=== PATIENT | female | born 1955 | race African-American/Black ===

== ENCOUNTER 2017-06-26 07:08 | Inpatient (IN) | payer MEDICARE, BC ==
[~2017-06-26] VITALS: Ht 170.2 cm; Wt 119.3 kg
--- NOTE | ~2017-06-26 | OP ---
PATIENT NAME: BRITT SCANLON MEDICAL RECORD: [id number] :56 LOCATION:D. D.2105 ADMISSION DATE:06/26/17 SURGEON: RENE MARR MD DATE OF OPERATION: 06/26/2017 REFERRING PHYSICIAN: Dr. Sanderson and local doggy daycare activities director Dr. Good. 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 OPERATION PERFORMED: Implantation of HeRO AV graft with performance of intraoperative superior vena cavogram and balloon angioplasty of stenotic right internal jugular vein. This included implantation an Acuseal PTFE early stick graft in the right arm and thrombectomy of prior brachial artery of cephalic vein anastomosis. SURGEON: Rene Marr MD. ANESTHESIA: General endotracheal per NEWSPAPER DISTRIBUTOR SUPERVISOR. NEWSPAPER DISTRIBUTOR SUPERVISOR also placed a left common femoral central venous line, a non-tunneled central venous line using ultrasound guidance and I also removed her right internal jugular tunneled dialysis catheter. PREOPERATIVE NOTE: Ms. Britt Scanlon is a 62-year-old morbidly obese, hypertensive diabetic -[place] female from [place]. She is on dialysis and has had complications with her right upper arm fistula, which was later converted to a brachiocephalic and brachial axillary AV graft. She developed axillary and subclavian venous stenoses, which were treated with angioplasty and stents and at this time now is catheter dependent. The access in her right arm has thrombosed. 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 She is brought to the hospital today for admission and she is having elective access surgery. I plan to remove her tunneled dialysis catheter and implant a HeRO graft and used the right internal jugular as the conduit for inserting the HeRO outflow device into the central venous circulation. Under general endotracheal anesthesia, the patient was prepped and draped in sterile manner. She was given Ancef 1 gram, but also given 1 gram of vancomycin IV at the initiation of the operation. I made an incision distally just above the antecubital space and exposed the old thrombosed PTFE graft and its anastomosis to the stump of her old brachiocephalic fistula. The graft and the fistula stump were dissected from the surrounding tissues, there was a palpable pulsation in the venous cuff, so that I thought we could probably used the stump of the old graft there on the old fistula and do a thrombectomy and then sew a new graft into it. The area was treated with Ancef and gentamicin solution. I made an incision at the base of the neck on the right; actually we opened the OPERATIVE REPORT [id number] BRITT SCANLON previous incision and extended it and exposed her internal jugular catheter, clamped and divided it. I removed a segment of catheter from the subcutaneous tunnel, which included the Dacron felt cuff portion and this segment was sent to laboratory for culture. The external portion of the catheter was removed and then discarded. The wounds were irrigated again with Ancef and gentamicin solution. I removed the intravascular segment of catheter over a guidewire under fluoroscopy and then inserted an 8-Tuvaluan introducer over the wire. I was able then to pass an angled Glidewire with a glide catheter through the introducer and superior vena cava and right atrium into the inferior vena cava. I then did a wire exchange placing an Amplatz stiff wire in the inferior vena cava. I backed the introducer out to quite superficial location and did a contrast injection with digital subtraction and demonstrated a very severely recurrent stenotic right internal jugular vein. This was subsequently dilated with an 8 mm diameter high pressure Conquest balloon; after which, I passed serial dilators and lastly a dilator peel-away introducer sheath. The HeRO outflow device was then lubricated and inserted over the Amplatz wire and positioned in the right atrium. Aspiration demonstrated easy return of blood; after which, it was flushed with saline and then a contrast injection done, which confirmed its position within the right atrium. The outflow device was again flushed with heparin and saline and clamped and an incision was made over the deltopectoral groove and the outflow stent catheter was pulled from the primary cervical wound down into the deltopectoral groove wound where it was shortened and prepared for anastomosis. I then chose a 6-mm diameter Acuseal [place] PTFE graft and then anastomosed it end-to-side to the old graft just proximal to the old graft to vein anastomosis. I first used a 4-Tuvaluan Radha embolectomy catheter to remove thrombus from the arterial anastomosis. Before and after these maneuvers, I performed a Doppler examination and demonstrated pulsatile flow in the radial artery at the wrist, which was unchanging during the procedure. When the Acuseal graft anastomosis was completed with a 6-0 Prolene, it was sealed with BioGlue and then after an adequate time for the glue to cure, that suture line was demonstrated to be hemostatic and watertight. The graft was flushed with heparinized saline and clamped. A tunneler was used from the deltopectoral groove down to the distal arm incision and the graft pulled through that subcutaneous tunnel, placing it as close to the skin as possible to ease its access. That graft was then shortened and the HeRO attachment device fixed on its end and it was then coupled with the HeRO outflow stent catheter and clamps were removed allowing flow in the new circuit. Doppler examination revealed excellent continuous pulsatile flow. The wounds were closed without the use of a drain with interrupted inverted 3-0 Vicryl and running intracuticular 4-0 Monocryl. A couple of 4-0 Prolene sutures were used in addition to close the skin at the cervical incision. All the wounds were dressed with Dermabond glue, Maxorb Ag, Tegaderm and Cavilon skin prep. She was awakened and extubated and taken to the recovery room in stable condition. Blood loss about 100 cc was not replaced. All sponges, instruments and needles were accounted for. No surgical specimen was submitted for histopathology and all sponges, instruments, and needles were accounted for. The patient will be admitted to the hospital and will have her first dialysis tomorrow via the new Acuseal graft. TRANSINT:[id number] Voice Confirmation ID: [id number] DOCUMENT ID: [id number] OPERATIVE REPORT [id number] BRITT SCANLON JAMES MD CC: SAMMIE GOOD MD and GEOVANNY SANDERSON III MD [id number] DICTATION DATE: 06/26/17 165 [address] OPERATOR: 06/27/17 0016 ADM IN [facility] [address] [place] [address]
[~2017-06-26 07:08] MED LIST: BAYER CHEWABLE81 MG PO; ELIQUIS5 MG PO; EMLA CREAM 30 G30 G1 TOPICAL; ENULOSE10 G/15 ML PO; GLIPIZIDE10 MG PO; GLUCOTROL 5 MG T5 MG PO; HYDRALAZINE HCL25 MG PO; KLONOPIN1 MG PO; LASIX80 MG PO; LOSARTAN POTASS25 MG PO; METOPROLOL TAR100 M1 PO; NORVASC5 MG PO; PHOSLO667 MG PO; PRAVACHOL40 MG PO; RENA-VITE TABL0.8 MG PO; SENSIPAR60 MG PO; SODIUM BICARBO650 MG PO; ULTRAM50 MG PO; ZYLOPRIM100 MG PO
[2017-06-26 09:15] LABS: ANION GAP 15.7 mmol/L (8-16); CALCIUM 8.5 mg/dL (8.5-10.1); CARBON DIOXIDE 25.1 mmol/L (21.0-32.0); CREATININE - SERUM 6.4 mg/dL (0.6-1.3); POTASSIUM - SERUM 4.8 mmol/L (3.5-5.1)
[2017-06-26 09:17] LABS: APTT 26.8 SECONDS (22.8-39.4); INR 0.99 (0.85-1.17)
[2017-06-26] MEDS ORDERED: RENA-VITE TABL0.8 MG PO (10:35)
[2017-06-26] MEDS ORDERED: RENVELA800 MG PO (10:36)
[2017-06-26] MEDS ORDERED: PHOSLO667 MG PO (10:37)
[2017-06-26 10:48] VITALS: BP 114/81; Ht 170.2 cm; Wt 119.3 kg
[2017-06-26] MEDS ORDERED: MINOCIN50 MG PO (16:27)
--- NOTE | 2017-06-26 17:01 | NUR ---
FSBS 119
--- NOTE | 2017-06-26 17:25 | NUR ---
PT ARRIVED FROM POST OP RECOVERY BY TINA ROBERSON RN. VSS AND BEING MONITERED PER POST OP POLICY. PT A&O TRANSFERRED TO THE BED HERSELF FROM THE STRETCHER. PT IS A R.ARM RESERVE AND HAS NEWLY PLACED HEROGRAFT IN PLACE. DRSG CDI, NO S/S OF BLEEDING OR HEMATOMA NOTED. PT HAS INCISION WITH DRSG TO HER R.UPPER CHEST ALSO FROM REMOVED CATHETER. PT HAS A L.GROIN CVL TRIPLE LUMEN WITH ALL 3 LUMENS PATENT. DRSG CDI AND BIOPATCH IN PLACE WITH SWAB CAPS IN USE. PT WEARING SCDS. PT DENIES ANY CURRENT PAIN OR NEEDS, WILL CHECK ORDERS AND CPOC.
[2017-06-26 17:31] VITALS: BP 143/61
--- NOTE | 2017-06-26 17:44 | NUR ---
DURING ADMISSION ASSESSMENT COMPUTER SCREEN TURNED BLACK AND SHUT DOWN. REBOOTED SYSTEM AND NOW THAT TASK IS LOCKED. WILL TRY AGAIN LATER AND CALL VENDING TECHNICIAN.
[2017-06-26 20:00] VITALS: BP 110/62
[2017-06-27] VITALS: BP 81/43
--- NOTE | 2017-06-27 01:46 | NUR ---
RESTING WITH EYES CLOSED. HAS CPAP ON. NO S/S OF DISCOMFORT. CL IN REACH.
[2017-06-27 04:00] VITALS: BP 145/76
--- NOTE | 2017-06-27 07:45 | NUR ---
Pt alert and oriented with no c/o pain currently. HOB elevated to approx 30 degrees. Pt will have dialysis today, with no current time available. Nursing to inform pt when dialysis calls. Pt has several areas of discoloration to chest, clean and dry dressing to rt IP. Call light in reach, pt able to make needs known, uses bedpan for elimination.
[2017-06-27 07:51] VITALS: BP 113/52
--- NOTE | 2017-06-27 08:52 | NUR ---
To dialysis by bed ar [id number].
--- NOTE | 2017-06-27 11:45 | NUR ---
PT IS CURRENTLY IN DIALYSIS
--- NOTE | 2017-06-27 12:43 | NUR ---
Returned from dialysis via bed with no c/o pain. Lunch provided.
--- NOTE | 2017-06-27 13:20 | NUR ---
Lt groin CVL removed by RN (after removal of 2 sutures), without complication, cath tip intact. Pt tolerated procedure with minimal c/o discomfort.
--- NOTE | 2017-06-27 13:26 | NUR ---
Pt left via wheelchair with no bleeding, no distress, no c/o pain. Pt left with sister, personal belongings. discharge instructions.
--- NOTE | 2017-06-27 13:26 | NUR ---
TRIPLE LUMEN CENTRAL LINE REMOVED FROM LEFT GROIN, 15CM IN LENGTH. PRESSURE HELD FOR 10 MINUTES. NO BLEEDING FROM SITE. PRESSURE DRESSING APPLIED TO LEFT GROIN. INSTRUCTIONS PROVIDED TO PATIENT, NO TUBE BATHS UNTIL AREA IS HEALED. PATIENT VERBALIZED UNDERSTANDING OF INSTRUCTIONS PROVIDED. NO DISTRESS.
== END 2017-06-27 13:27 | disposition home or self-care (01) | DRG 252 ==
LOC: D.OPS 07:08 → D.M2 17:18 → D.OPS 17:19 → D.M2 06-27 13:27
PROVIDERS: Surgery; ADMIT Internal Medicine Nephrology
PROC: 037Y3ZZ Dilation of Upper Artery, Percutaneous Approach (ICD-10-PCS; 2017-06-26)
PROC: 03C73ZZ Extirpation of Matter from Right Brachial Artery, Percutaneous Approach (ICD-10-PCS; 2017-06-26)
PROC: 05CD3ZZ Extirpation of Matter from Right Cephalic Vein, Percutaneous Approach (ICD-10-PCS; 2017-06-26)
PROC: 03170KF Bypass Right Brachial Artery to Lower Arm Vein with Nonautologous Tissue Substitute, Open Approach (ICD-10-PCS; 2017-06-26)
PROC: B5181ZZ Fluoroscopy of Superior Vena Cava using Low Osmolar Contrast (ICD-10-PCS; 2017-06-26)
PROC: 03170JD Bypass Right Brachial Artery to Upper Arm Vein with Synthetic Substitute, Open Approach (ICD-10-PCS; principal; 2017-06-26 11:30)
PROC: 5A1D00Z (ICD-10-PCS; 2017-06-27)
DX: I82.C11 Acute embolism and thrombosis of right internal jugular vein (principal); N18.6 End stage renal disease; I12.0 Hypertensive chronic kidney disease with stage 5 chronic kidney disease or end stage renal disease; I82.B11 Acute embolism and thrombosis of right subclavian vein; E11.22 Type 2 diabetes mellitus with diabetic chronic kidney disease; Z99.2 Dependence on renal dialysis; E66.01 Morbid (severe) obesity due to excess calories

== ENCOUNTER 2017-10-02 15:45 | Day surgery (SDC) | payer MEDICARE, BC ==
[~2017-10-02 15:45] MED LIST changes: +MINOCIN50 MG PO; +RENVELA800 MG PO
[2017-10-03 11:22] VITALS: BMI 41.6
== END 2017-10-03 21:19 | disposition home or self-care (01) ==
LOC: D.OPS 15:45
DX: T82.868A Thrombosis due to vascular prosthetic devices, implants and grafts, initial encounter (principal); E11.22 Type 2 diabetes mellitus with diabetic chronic kidney disease; I12.0 Hypertensive chronic kidney disease with stage 5 chronic kidney disease or end stage renal disease; N18.6 End stage renal disease; Z99.2 Dependence on renal dialysis; G47.30 Sleep apnea, unspecified; E66.01 Morbid (severe) obesity due to excess calories; Z68.41 Body mass index [BMI] 40.0-44.9, adult; Z79.84 Long term (current) use of oral hypoglycemic drugs; Z79.01 Long term (current) use of anticoagulants; Z88.5 Allergy status to narcotic agent; Z79.899 Other long term (current) drug therapy; Z01.812 Encounter for preprocedural laboratory examination

== ENCOUNTER 2017-11-11 18:23 | Inpatient (IN) | payer MEDICARE, BC ==
[~2017-11-11] VITALS: Ht 162.6 cm; Wt 128.0 kg
--- NOTE | ~2017-11-11 | OP ---
PATIENT NAME: NELSON SCANLON MEDICAL RECORD: [id number] :56 LOCATION:D. D.2128 ADMISSION DATE:11/11/17 SURGEON: RENE MARR MD DATE OF OPERATION: 11/13/2017 PREOPERATIVE DIAGNOSES: End-stage renal disease, morbid obesity, diabetes, hypertension, and thrombosed right upper extremity HeRO AV graft. POSTOPERATIVE DIAGNOSES: End-stage renal disease, morbid obesity, diabetes, hypertension, and thrombosed right upper extremity HeRO AV graft. OPERATION PERFORMED: Open thrombectomy and balloon angioplasty of AV graft in the right arm plus complete fistulogram with imaging from the brachial arterial anastomosis to the right atrium. SURGEON: Rene Marr MD ANESTHESIA: General by FEED PREPARATION OPERATOR with LMA. REFERRING PHYSICIAN: Dr. Key of [place] and Dr. Handley. PREOPERATIVE NOTE: Ms. Scanlon is a 62-year-old -[place] female from [facility]. She has end-stage renal disease and is on chronic hemodialysis. She has had several dialysis access failures and had dialyzed well for a while with a right arm brachiocephalic fistula; however, right subclavian vein occlusion and venous hypertension led to transformation or conversion to a HeRO graft on that side, that has been revised once with a different Acuseal PTFE graft placed laterally around the initial one and she has been on anticoagulants, Plavix, aspirin, and Eliquis. Despite the anticoagulation, she has thrombosed her graft again 2 days ago in the [facility] access [facility] as an outpatient. I performed a percutaneous thrombectomy and angioplasty of stenoses with the body of the graft, but I was unable to adequately resolve the large volume of organized thrombus in the graft, particularly in the JA segment and so she was admitted to the hospital and put on a continuous heparin drip and an attempt to dialyze her with her fistula yesterday was unsuccessful. Her heparin drip was discontinued just a few hours ago and she is brought to the operating room now with plans for an open thrombectomy, fistulogram, and indicated procedures, possibly including insertion of a tunneled catheter. DESCRIPTION OF PROCEDURE: Under general anesthesia in supine position, the patient was prepped and draped in sterile manner. I made an S-shaped transversely oriented incision over the fistula and arterial anastomosis and dissected the cephalic vein portion of the fistula and exposed and cleared a long enough segment to work with and it was encircled with Silastic loops. The patient was given 5000 units of heparin systemically. The fistula was clamped at the arterial anastomosis and then the old cephalic vein segment was incised longitudinally and organized thrombus was removed from the lumen. I then used an embolectomy catheter to remove thrombus from the body of the graft and from the HeRO outflow device. Good return or backbleeding was obtained, the graft was clamped distally. I removed the clamp from the arterial anastomosis and used the Radha embolectomy catheter to remove thrombus from the arterial anastomosis and restore brisk arterial inflow. With the fistula clamped on the arterial side and on the runoff side, the arteriotomy was closed with a running 5-0 Prolene and when that was complete and the clamps removed, excellent flow was noted immediately within the graft and there was a palpable thrill and good OPERATIVE REPORT [id number] SCANLON,GLENADINE L augmentation, etc. I then inserted a 6-Gambian introducer and performed a fistulogram. I demonstrated some irregularities in the body of the graft, which resulted in a 70% to 80% stenosis. These areas were dilated with a 7-mm diameter angioplasty balloon and I again pulled the Radha catheter back from the right atrium through the length of the HeRO outflow device and the body of the Acuseal PTFE graft. Contrast injection revealed full resolution of the stenosis and no evidence of any other obstruction. I then occluded the body of the graft and opened the clamp on the arterial anastomosis and performed additional reflux angiography to demonstrate that there was no thrombus or obstruction within the juxta anastomotic segment or in the brachial artery above or below the anastomosis. There was good flow distally into the forearm and hand. The clamps were removed. Introducer sheath was removed and that site was sutured with a [id number] 5-0 Prolene and the wound was then irrigated with saline and then infiltrated and irrigated with 0.25% Marcaine. I repeated a duplex Doppler color examination and demonstrated turbulent flow within the body of the graft as hoped. The wound was then closed with interrupted inverted 3-0 Vicryl and then running intracuticular 4-0 Monocryl and Dermabond glue and it was dressed with Maxorb Ag, Tegaderm, and Cavilon skin prep. She was awakened and returned to the recovery room in stable condition. PLAN: I am going to put the patient back on Eliquis and Plavix as of now and she can have dialysis this evening or perhaps in the morning and then hopefully be able to go home if she has transportation tomorrow. I can see her back in my office in about 2 weeks. TRANSINT:[id number] Voice Confirmation ID: [id number] DOCUMENT ID: [id number] RENE MARR MD at 1019 CC: ISELA HANDLEY MD [id number] DICTATION DATE: 11/13/17 1533 CARCASS WASHER: 11/13/17 1806 DIS IN 11/14/17 [id number] [place] [address]
[2017-11-11 19:00] VITALS: BP 175/85
[2017-11-11] MEDS ORDERED: KLONOPIN1 MG PO (20:22)
[2017-11-11] MEDS ORDERED: FERRIC CITRATE210 MG PO (20:22)
[2017-11-11] MEDS ORDERED: COZAAR50 MG PO (20:23)
[2017-11-11] MEDS ORDERED: CYCLOBENZAPRINE10 MG PO (20:24)
[2017-11-11] MEDS ORDERED: MELATONIN 3 MG1 TAB PO (20:24)
[2017-11-11] MEDS ORDERED: LOPRESSOR25 MG PO (20:25)
[2017-11-11] MEDS ORDERED: SENSIPAR30 MG PO (20:26)
[2017-11-11 20:36] LABS: APTT 38.5 SECONDS (22.8-39.4); INR 1.13 (0.85-1.17); PROTIME 14.1 SECONDS (11.6-15.0)
[2017-11-11 20:39] LABS: ANION GAP 16.3 mmol/L (8-16); CALCIUM 8.6 mg/dL (8.5-10.1); CARBON DIOXIDE 22.7 mmol/L (21.0-32.0)
[2017-11-11 20:51] LABS: BASOPHILS 0.2 % (0-2); EOSINOPHILS 3.2 % (0-7); HEMATOCRIT 32.4 % (36.0-48.0); HEMOGLOBIN 10.4 g/dL (12-16); LYMPHOCYTES 18.2 % (15-50); MCH 30.5 pg (26.0-34.0); MCHC 32.1 g/dL (31.0-37.0); MEAN PLATELET VOLUME 10.9 fL (7.4-10.4); MONOCYTES 6.6 % (2-11); NEUTROPHILS 71.8 % (40-80); PLATELET COUNT 174 10x3/uL (130-400); RBC 3.41 10x6/uL (4.00-5.40); RDW 14.7 % (11.5-14.5); WBC 5.3 10x3/uL (4.8-10.8)
[2017-11-11 23:44] VITALS: BP 175/85; BMI 29.5
[2017-11-12 04:00] VITALS: BP 141/57
[2017-11-12 08:47] VITALS: BP 138/74
[2017-11-12 12:23] VITALS: BMI 48.4
[2017-11-12 12:33] VITALS: BP 144/72
[2017-11-12 14:06] VITALS: Ht 162.6 cm; Wt 128.0 kg
[2017-11-12 16:28] VITALS: BP 137/77
[2017-11-12 21:44] VITALS: BP 147/68
[2017-11-13 01:15] VITALS: BP 133/56
[2017-11-13 05:58] VITALS: BP 171/66
[2017-11-13 06:13] LABS: BASOPHILS 0.4 % (0-2); EOSINOPHILS 4.5 % (0-7); HEMATOCRIT 33.9 % (36.0-48.0); HEMOGLOBIN 10.5 g/dL (12-16); IMMATURE GRANULOCYTES 0.2 % (0-5); MCH 29.9 pg (26.0-34.0); MCV 96.6 fL (80.0-100.0); MEAN PLATELET VOLUME 11.3 fL (7.4-10.4); MONOCYTES 6.4 % (2-11); NEUTROPHILS 56.5 % (40-80); PLATELET COUNT 184 10x3/uL (130-400); RBC 3.51 10x6/uL (4.00-5.40); WBC 5.2 10x3/uL (4.8-10.8)
[2017-11-13 06:26] LABS: INR 1.06 (0.85-1.17); PROTIME 13.4 SECONDS (11.6-15.0)
[2017-11-13 06:37] LABS: ANION GAP 21.9 mmol/L (8-16); CALCIUM 9.1 mg/dL (8.5-10.1); CARBON DIOXIDE 20.5 mmol/L (21.0-32.0); CREATININE - SERUM 10.3 mg/dL (0.6-1.3); PHOSPHOROUS 6.5 mg/dL (2.5-4.9); POTASSIUM - SERUM 4.4 mmol/L (3.5-5.1)
[2017-11-13 08:06] VITALS: BP 185/94
[2017-11-13 11:18] VITALS: BP 154/67
[2017-11-13 15:43] VITALS: BP 142/75
[2017-11-13 19:00] VITALS: BP 127/45
[2017-11-14 04:00] VITALS: BP 111/53
[2017-11-14 07:12] LABS: HEMATOCRIT 30.5 % (36.0-48.0); HEMOGLOBIN 9.9 g/dL (12-16); LYMPHOCYTES 16.9 % (15-50); MCH 30.4 pg (26.0-34.0); MCHC 32.5 g/dL (31.0-37.0); MEAN PLATELET VOLUME 9.9 fL (7.4-10.4); RBC 3.26 10x6/uL (4.00-5.40); RDW 14.3 % (11.5-14.5); WBC 6.5 10x3/uL (4.8-10.8)
[2017-11-14 07:26] LABS: MCV 93.6 fL (80.0-100.0); PLATELET COUNT 142 10x3/uL (130-400)
[2017-11-14 07:29] LABS: ANION GAP 17.9 mmol/L (8-16); CALCIUM 8.5 mg/dL (8.5-10.1); CARBON DIOXIDE 24.2 mmol/L (21.0-32.0); PHOSPHOROUS 5.8 mg/dL (2.5-4.9); POTASSIUM - SERUM 4.1 mmol/L (3.5-5.1)
[2017-11-14 08:23] VITALS: BP 117/66
[2017-11-14] MEDS ORDERED: PLAVIX75 MG PO (10:49)
== END 2017-11-14 14:49 | disposition home or self-care (01) | DRG 252 ==
LOC: D.M2 18:23 → OBSVTIME 18:23 → D.M2 18:24
PROVIDERS: Internal Medicine; Internal Medicine Nephrology; Surgery
PROC: 5A1D70Z Performance of Urinary Filtration, Intermittent, Less than 6 Hours Per Day (ICD-10-PCS; 2017-11-12)
PROC: 03C70ZZ Extirpation of Matter from Right Brachial Artery, Open Approach (ICD-10-PCS; principal; 2017-11-13 12:00)
PROC: 037Y0ZZ Dilation of Upper Artery, Open Approach (ICD-10-PCS; 2017-11-13 12:00)
PROC: B51W1ZZ Fluoroscopy of Dialysis Shunt/Fistula using Low Osmolar Contrast (ICD-10-PCS; 2017-11-13 12:00)
DX: T82.858A Stenosis of other vascular prosthetic devices, implants and grafts, initial encounter (principal); N18.6 End stage renal disease; I12.0 Hypertensive chronic kidney disease with stage 5 chronic kidney disease or end stage renal disease; Z68.42 Body mass index [BMI] 45.0-49.9, adult; N25.81 Secondary hyperparathyroidism of renal origin; Y83.8 Other surgical procedures as the cause of abnormal reaction of the patient, or of later complication, without mention of misadventure at the time of the procedure; E11.22 Type 2 diabetes mellitus with diabetic chronic kidney disease; Z99.2 Dependence on renal dialysis; E66.01 Morbid (severe) obesity due to excess calories; D63.1 Anemia in chronic kidney disease; K21.9 Gastro-esophageal reflux disease without esophagitis; G47.00 Insomnia, unspecified

== ENCOUNTER 2018-01-05 08:15 | Day surgery (SDC) | payer MEDICARE, BC ==
[~2018-01-05] VITALS: Ht 152.4 cm; Wt 120.2 kg
--- NOTE | ~2018-01-05 | OP ---
PATIENT NAME: NELSON GARDNER MEDICAL RECORD: [id number] :56 LOCATION:JASWINDER ADMISSION DATE: SURGEON: RENE MARR MD DATE OF OPERATION: 01/05/2018 PREOPERATIVE DIAGNOSES: End-stage renal disease and dependence on hemodialysis, thrombosed right upper extremity HeRO AV graft, also diabetes, hypertension, and morbid obesity. REFERRING PHYSICIANS: 1. Duarte Key MD, [place] 2. Aki Burgos MD, [place] SURGEON: Rene Marr MD ANESTHESIA: General endotracheal per AIR TUBE RELEASER and Dr. Staples. PREOP NOTE: Ms. Gardner is a 62-year-old morbidly obese -[place]aced[place] female from [facility], who is on chronic hemodialysis in [place]. She has been dialyzing most recently with a right upper extremity HeRO AV graft. She was converted to from a brachiocephalic fistula on the right due to an occluded right subclavian vein. She has had problems with the HeRO graft and had had problems with the graft not being inserted superficially enough to be easily felt and accessed. The most recent version had worked reasonably well, but it has thrombosed at this time. She actually had an open thrombectomy fairly recently. At that time, she was found to have organized thrombus in a remaining portion of her original brachiocephalic fistula, to which her PTFE graft had been anastomosed just above the antecubital space. It is thought that that remaining segment of old fistula needs to be totally resected. She is brought to the operating room at this time to do an intraoperative fistulogram and open revision and thrombectomy and indicated procedures. Note, she is dialyzing at this time with a left femoral tunneled dialysis catheter, which I placed at [facility], which is far from ideal access for this morbidly obese lady. We hope to able to get this out soon. Under general endotracheal anesthesia in supine position, the patient's right arm, shoulder, and neck were prepped and draped in a sterile manner. I made an incision in a S-shaped curve over the medial aspect of the antecubital space and exposed the graft and the remaining segment of the brachiocephalic fistula and the arterial anastomosis at the brachial artery. I transected the thrombosed graft and used a Radha catheter to remove thrombus from the distal portion of the PTFE. I identified a spot about at about mid humeral level, where it was totally occluded and I could not pass a guidewire or Radha balloon catheter. So, I made another incision directly over the far laterally placed PTFE graft and found a segment which appeared to be worn out from repeated punctures with several weeks after mobilization. I was able to pass this with a Radha embolectomy catheter, manipulating the involved segment, and was able to remove thrombus from the body of the HeRO outflow device and the remaining proximal portion of the PTFE. She was heparinized with 5000 units of heparin at that point. I then realized I would need to essentially replace the PTFE graft and resect the remaining cephalic vein at the old fistula. I mobilized the old anastomosis and used a partially occluding clamp to occlude flow to and from the brachial artery. I then transected the conduit just above the old anastomosis and performed an anastomosis end-to-end to a 7-mm diameter OPERATIVE REPORT [id number] KENDRABEATRICEROSALIO Tompkins Propaten PTFE graft. This anastomosis was done with running 6-0 Prolene and the suture line treated with BioGlue. The suture line was found to be hemostatic. The graft and brachial artery were flushed with heparinized saline and graft clamped. I then explored the old graft a bit more and found a segment just above the one which had been occluded and found the segment to have very poor tissue ingrowth and had a slightly slick surface consistent with a biofilm formation. I took several swabs for culture for aerobic and anaerobic organisms and ended up resecting most of the graft and the segments were sent for culture and sensitivity. There was a segment of graft remaining in the upper or proximal portion of the tunnel, which was well fixed to the surrounding tissue and could not be removed without making a much larger wound, so I have left it alone. I made another incision over the deltopectoral groove and excised the patient's old hypertrophic scar. I first exposed wall covered stent graft and resected it as this was within the cephalic arch and had been thrombosed for a long time. I then, just above that, exposed the HeRO outflow device and the connection to the PTFE graft. I clamped the HeRO and resected the connection and the most proximal portion of PTFE. Segments of this graft were sent for culture. The 7-mm PTFE graft was then placed in a fairly straight tunnel up the anterior medial aspect of the arm from the antecubital space to the deltopectoral groove. I attached it to a HeRO replacement connector and ended up wasting this connectors. I found it could not be made to work with the 7-mm diameter graft. I therefore took a 6-mm, 10-cm long Propaten PTFE graft and shortened the 7-mm graft and then performed an end-to-end anastomosis with running 6-0 Prolene and sealed that additionally with BioGlue. The anti-kink spring device was placed over the graft and the graft appropriately shortened and a new connector placed, which did of course fit perfectly to the 6-mm graft. I shortened the outflow device and then hooked it up with the connector and released the occluding clamps and excellent flow was immediately established through the newly revised HeRO. There was good pulsatile Doppler flow at the radial artery before, during, and after the procedure. I did not perform a specific brachial artery arteriogram, but I did perform a completion fistulogram with a 4-Spanish catheter placed with micropuncture technique and the PTFE. I demonstrated, I think, most importantly to my satisfaction that there was no evidence of leak at or around the HeRO connector and that there was rapid flow through the device without any significant stenosis. The puncture site there was closed with a 6-0 Prolene [id number] and additional BioGlue. The wounds were all irrigated with Ancef/gentamicin solution and hemostasis obtained with electrocautery. The patient's heparin was reversed with 30 mg of protamine. The wounds were closed without the use of drains with interrupted inverted 3-0 Vicryl. The skin was closed variously with oliver and simple and alternating vertical mattress sutures of 3-0 Vicryl. Sterile dressings of Maxorb Ag, Tegaderm, and Cavilon skin prep were applied. The patient was awakened, extubated, and taken to the recovery room in satisfactory condition. Blood loss during the procedure was less than 200 cc, probably closer to 100, none was replaced. All sponges, instruments, and needles were accounted for. No drain was used and no surgical specimen was submitted for histopathology, although sections of the graft as well as swabs were sent for culture and sensitivity. I will plan for the patient to remain in the hospital in observation this evening. She will possibly need to have dialysis here tomorrow. If not, she will be able to go back to [place] and have dialysis there. She will need to continue to have dialysis with her femoral catheter for 2 more weeks before we start to access her new graft and then hopefully we can get the catheter out just as soon as possible after that. She was given a gram of vancomycin this OPERATIVE REPORT [id number] NELSON GARDNER L evening in the operating room at the initiation of the procedure and I would like to see her continued on vancomycin at dialysis pending the results of today's cultures. An appointment is scheduled for her to return to see me in my office next week, I believe, on , at which time I will probably be able to remove many of her skin sutures or oliver. She will be continued on all of her same medications including anticoagulants beginning tomorrow. TRANSINT:[id number] Voice Confirmation ID: [id number] DOCUMENT ID: [id number] RENE MARR MD at 2012 CC: ISELA SOLIS MD [id number] DICTATION DATE: 01/05/181816 BLANKBOOK FORWARDER: 01/05/181941 [facility] 01/06/18 [facility] [address] [place] [address]
[~2018-01-05 08:15] MED LIST changes: +COZAAR50 MG PO; +CYCLOBENZAPRINE10 MG PO; +FERRIC CITRATE210 MG PO; +LOPRESSOR25 MG PO; +MELATONIN 3 MG1 TAB PO; +PLAVIX75 MG PO; +SENSIPAR30 MG PO
[2018-01-05 09:12] LABS: BASOPHILS 0.3 % (0-2); EOSINOPHILS 2.3 % (0-7); HEMATOCRIT 32.9 % (36.0-48.0); HEMOGLOBIN 10.1 g/dL (12-16); IMMATURE GRANULOCYTES 0.1 % (0-5); LYMPHOCYTES 21.9 % (15-50); MCH 30.1 pg (26.0-34.0); MCHC 30.7 g/dL (31.0-37.0); MCV 97.9 fL (80.0-100.0); MEAN PLATELET VOLUME 10.4 fL (7.4-10.4); MONOCYTES 4.1 % (2-11); NEUTROPHILS 71.3 % (40-80); PLATELET COUNT 215 10x3/uL (130-400); RBC 3.36 10x6/uL (4.00-5.40); RDW 14.8 % (11.5-14.5); WBC 7.6 10x3/uL (4.8-10.8)
[2018-01-05 09:21] LABS: ANION GAP 16.4 mmol/L (8-16); CALCIUM 9.3 mg/dL (8.5-10.1); CREATININE - SERUM 6.7 mg/dL (0.6-1.3); POTASSIUM - SERUM 4.4 mmol/L (3.5-5.1)
[2018-01-05 09:23] LABS: APTT 28.5 SECONDS (22.8-39.4); INR 1.07 (0.85-1.17); PROTIME 13.5 SECONDS (11.6-15.0)
[2018-01-05 10:05] VITALS: BP 141/71; BMI 45.6
[2018-01-06] VITALS: BP 128/63
[2018-01-06 01:55] VITALS: Ht 152.4 cm; Wt 120.2 kg
[2018-01-06 10:52] VITALS: BP 135/63
== END 2018-01-06 12:52 | disposition home or self-care (01) ==
LOC: OBSVTIME → D.OPS 08:15 → D.M2 08:15 → D.OPS 12:30 → D.M2 18:02 → OBSVTIME 18:02 → D.OPS 18:02 → D.M2 18:02 → D.OPS 01-06 12:32 → D.M2 01-06 12:52 → D.OPS 01-06 12:52
PROVIDERS: Surgery
DX: T82.868A Thrombosis due to vascular prosthetic devices, implants and grafts, initial encounter (principal); Y83.9 Surgical procedure, unspecified as the cause of abnormal reaction of the patient, or of later complication, without mention of misadventure at the time of the procedure; E11.22 Type 2 diabetes mellitus with diabetic chronic kidney disease; I12.0 Hypertensive chronic kidney disease with stage 5 chronic kidney disease or end stage renal disease; N18.6 End stage renal disease; Z99.2 Dependence on renal dialysis; E66.01 Morbid (severe) obesity due to excess calories

== ENCOUNTER 2018-01-28 17:45 | Inpatient (IN) | payer MEDICARE, BC ==
[~2018-01-28] VITALS: Ht 162.6 cm; Wt 131.4 kg
--- NOTE | ~2018-01-28 | OP ---
PATIENT NAME: NELSON SCANLON MEDICAL RECORD: [id number] :57 LOCATION:D. D.2133 ADMISSION DATE:01/28/18 SURGEON: RENE MARR MD DATE OF OPERATION: 01/29/2018 REFERRING PHYSICIAN: Aki Good MD ANESTHESIA: General per JESSIE and Dr. Cole. SURGEON: Rene Marr MD POSTOPERATIVE DIAGNOSES: End-stage renal disease and dependence on hemodialysis and thrombosis of right upper extremity, HeRO AV graft, and morbid obesity, diabetes, hypertension, right subclavian vein occlusion, left internal jugular vein occlusion, and right internal jugular vein occlusion. OPERATION PERFORMED: Removal of tunneled dialysis catheter, which was the HeRO outflow device from the right neck and removal of segment of infected PTFE vascular graft from the right shoulder and upper arm. Then, also ultrasound-guided access of the left internal jugular vein with venography and then exchange of femoral tunneled dialysis catheter in the left common femoral vein under fluoroscopy. SURGEON: Rene Marr MD ANESTHESIA: General per BUSINESS INITIATIVES MANAGER and Dr. Cole. PREOPERATIVE NOTE: Ms. Scanlon is an unfortunate morbidly obese -[place] female with end-stage renal disease and at this time, poor access alternatives, she has had a right upper extremity HeRO graft, which has thrombosed and she has been dialyzing with a left femoral tunneled catheter. She is brought to the operating room at this time to remove and try to place a tunneled catheter via the right internal jugular vein, so we can get the femoral catheter out at least. She may have a new graft implanted, there are number of possibilities. Under anesthesia, the patient was placed in supine position, prepped and draped in a sterile manner. I made an incision over the HeRO outflow device in the right cervical area and found that the stent had worked its way all the way out, so that the tip of the outflow device was actually in the subcutaneous tissues and there was no patent channel communicating with the internal jugular or the central veins at that point. I did extend the incision laterally and found that the PTFE portion of the graft out beyond the deltopectoral groove was surrounded by fluid without fixation in the tunnel and it was very suspicious for infection. I excised about 6 inches of the PTFE portion, the portion that was not seated and sent this for culture and removed the entire intravenous stent section and discarded it. That wound was irrigated with Ancef/gentamicin solution and closed with interrupted Vicryl sutures. I then used ultrasound to locate the left internal jugular vein, which was small and sclerotic appearing, but I was able to access it with micropuncture technique. My guidewire would not advance into the chest. Contrast injection demonstrated occlusion of the internal jugular vein at the level of the clavicular head. I then went to the femoral area and that area was totally reprepped and draped. The existing catheter was removed over a guidewire under fluoroscopy and replaced with a new one. Both lumens of the new HemoSplit which is a 40 cm OPERATIVE REPORT [id number] NELSON SCANLON HemoSplit functioned well, blood return was easy and the lumens flushed well. They were flushed with heparin lock solution, clamped and capped. The catheter was sutured in place. Sterile dressings applied. She was then awakened and in stable condition taken to the recovery room. Blood loss during the operation was insignificant and unreplaced and all sponges, instruments, and needles were accounted for and no drain was used. I did send the specimen for culture. PLAN: The patient will for now have to make do with her left femoral line. I will plan to try to get her back to the hospital within the next few weeks to implant a new AV graft in the left arm. TRANSINT:[id number] Voice Confirmation ID: [id number] DOCUMENT ID: [id number] RENE MARR MD at 1241 CC: AKI GOOD [id number] DICTATION DATE: 02/19/18 1348 JUKEBOX ROUTEMAN: 02/19/182110 DIS IN 01/30/18 [facility] [address] [id number]
[2018-01-28 18:40] VITALS: BP 196/17; BMI 45.6
[2018-01-28 19:50] LABS: BASOPHILS 0.3 % (0-2); EOSINOPHILS 2.5 % (0-7); HEMATOCRIT 27.3 % (36.0-48.0); HEMOGLOBIN 8.5 g/dL (12-16); IMMATURE GRANULOCYTES 0.2 % (0-5); LYMPHOCYTES 21.4 % (15-50); MCHC 31.1 g/dL (31.0-37.0); MCV 99.6 fL (80.0-100.0); MEAN PLATELET VOLUME 10.5 fL (7.4-10.4); MONOCYTES 4.9 % (2-11); NEUTROPHILS 70.7 % (40-80); PLATELET COUNT 240 10x3/uL (130-400); RBC 2.74 10x6/uL (4.00-5.40); RDW 14.8 % (11.5-14.5); WBC 5.9 10x3/uL (4.8-10.8)
[2018-01-28 20:02] LABS: INR 1.09 (0.85-1.17); PROTIME 13.7 SECONDS (11.6-15.0)
[2018-01-28 20:03] LABS: APTT 28.4 SECONDS (22.8-39.4)
[2018-01-28 20:07] LABS: ALBUMIN 3.3 g/dL (3.4-5.0); ANION GAP 17.7 mmol/L (8-16); BILIRUBIN - TOTAL 0.31 mg/dL (0.2-1.3); CALCIUM 8.8 mg/dL (8.5-10.1); CARBON DIOXIDE 23.9 mmol/L (21.0-32.0); CREATININE - SERUM 9.3 mg/dL (0.6-1.3); POTASSIUM - SERUM 4.6 mmol/L (3.5-5.1); PROTEIN - SERUM 6.7 g/dL (6.4-8.2)
[2018-01-28 20:37] VITALS: BP 127/64
[2018-01-29 00:46] VITALS: BP 124/52
[2018-01-29 05:50] VITALS: BP 105/38
[2018-01-29 06:31] LABS: BASOPHILS 0.4 % (0-2); EOSINOPHILS 3.2 % (0-7); HEMATOCRIT 25.4 % (36.0-48.0); HEMOGLOBIN 7.9 g/dL (12-16); LYMPHOCYTES 25.8 % (15-50); MCH 30.6 pg (26.0-34.0); MCHC 31.1 g/dL (31.0-37.0); MCV 98.4 fL (80.0-100.0); MEAN PLATELET VOLUME 10.4 fL (7.4-10.4); MONOCYTES 6.7 % (2-11); NEUTROPHILS 63.9 % (40-80); PLATELET COUNT 217 10x3/uL (130-400); RBC 2.58 10x6/uL (4.00-5.40); RDW 14.8 % (11.5-14.5); WBC 5.5 10x3/uL (4.8-10.8)
[2018-01-29 06:53] LABS: APTT 29.4 SECONDS (22.8-39.4); INR 1.17 (0.85-1.17); PROTIME 14.5 SECONDS (11.6-15.0)
[2018-01-29 07:16] LABS: ANION GAP 17.7 mmol/L (8-16); CALCIUM 8.8 mg/dL (8.5-10.1); CARBON DIOXIDE 21.1 mmol/L (21.0-32.0); CREATININE - SERUM 9.8 mg/dL (0.6-1.3); POTASSIUM - SERUM 4.8 mmol/L (3.5-5.1)
[2018-01-29 07:55] VITALS: BP 139/72
[2018-01-29 11:07] VITALS: Ht 162.6 cm; Wt 131.4 kg
[2018-01-29 11:37] VITALS: BP 110/65
[2018-01-29 15:35] VITALS: BP 152/75
[2018-01-29 19:00] VITALS: BP 139/82
[2018-01-30] VITALS: BP 158/72
[2018-01-30 04:00] VITALS: BP 134/56
[2018-01-30 07:47] LABS: BASOPHILS 0.2 % (0-2); EOSINOPHILS 0.9 % (0-7); HEMATOCRIT 26.2 % (36.0-48.0); HEMOGLOBIN 8.2 g/dL (12-16); LYMPHOCYTES 18.4 % (15-50); MCH 30.7 pg (26.0-34.0); MCHC 31.3 g/dL (31.0-37.0); MCV 98.1 fL (80.0-100.0); MEAN PLATELET VOLUME 10.3 fL (7.4-10.4); MONOCYTES 4.7 % (2-11); NEUTROPHILS 75.8 % (40-80); PLATELET COUNT 214 10x3/uL (130-400); RBC 2.67 10x6/uL (4.00-5.40); RDW 15.1 % (11.5-14.5); WBC 5.4 10x3/uL (4.8-10.8)
[2018-01-30 08:00] LABS: ANION GAP 18.8 mmol/L (8-16); CALCIUM 9.1 mg/dL (8.5-10.1); CARBON DIOXIDE 19.7 mmol/L (21.0-32.0); CREATININE - SERUM 10.7 mg/dL (0.6-1.3); POTASSIUM - SERUM 5.5 mmol/L (3.5-5.1)
[2018-01-30 08:52] VITALS: BP 110/53
[2018-02-02 04:14] LABS: HEPATITIS C ANTIBODY <0.1 (0.0-0.9)
== END 2018-01-30 19:47 | disposition home or self-care (01) | DRG 314 ==
LOC: D.M2 17:45 → D.OPS 01-29 09:45 → EDSTATUS 01-29 10:00 → D.OPS 01-29 11:00 → D.M2 01-30 19:47
PROVIDERS: Internal Medicine Nephrology; Surgery
PROC: 03PY33Z Removal of Infusion Device from Upper Artery, Percutaneous Approach (ICD-10-PCS; principal; 2018-01-29 12:30)
PROC: 0J2SXYZ Change Other Device in Head and Neck Subcutaneous Tissue and Fascia, External Approach (ICD-10-PCS; 2018-01-29 12:30)
PROC: 5A1D70Z Performance of Urinary Filtration, Intermittent, Less than 6 Hours Per Day (ICD-10-PCS; 2018-01-30)
DX: T82.7XXA Infection and inflammatory reaction due to other cardiac and vascular devices, implants and grafts, initial encounter (principal); N18.6 End stage renal disease; I12.0 Hypertensive chronic kidney disease with stage 5 chronic kidney disease or end stage renal disease; Z68.42 Body mass index [BMI] 45.0-49.9, adult; Y83.8 Other surgical procedures as the cause of abnormal reaction of the patient, or of later complication, without mention of misadventure at the time of the procedure; E11.22 Type 2 diabetes mellitus with diabetic chronic kidney disease; Z99.2 Dependence on renal dialysis; D63.1 Anemia in chronic kidney disease; E66.01 Morbid (severe) obesity due to excess calories

== ENCOUNTER 2018-03-05 06:02 | Day surgery (SDC) | payer MEDICARE, BC ==
[~2018-03-05] VITALS: Ht 162.6 cm; Wt 125.6 kg
--- NOTE | ~2018-03-05 | OP ---
PATIENT NAME: NELSON GARDNER MEDICAL RECORD: [id number] :57 LOCATION:DIVAN ADMISSION DATE: SURGEON: RENE MARR MD DATE OF OPERATION: 03/05/2018 REFERRING PHYSICIAN: Duarte Key MD and Aki Burgos MD of [place]. PREOPERATIVE DIAGNOSES: End-stage renal disease and dependence on hemodialysis and recent infected thrombosed HeRO graft on the right requiring removal and postop antibiotic therapy and multiple central vein stenoses and occlusions. OPERATION PERFORMED: Implantation of a right axillo-axillary loop Artegraft, dialysis access. SURGEON: Rene Marr MD ANESTHESIA: General endotracheal per PATROL SERGEANT. PREOPERATIVE NOTE: Ms. Gardner is a 63-year-old -[place]ian female from [place]. She is quite severely morbidly obese and diabetic, etc. She has end-stage renal disease and has had prior dialysis access failures and has multiple central vein stenoses. Notably, an occluded right subclavian vein and occlusions of the right and left internal jugular veins. She has been dialyzing for all too long now with a groin tunneled dialysis catheter and we hope we will get that out of her very very soon. I have recently removed an infected thrombosed HeRO graft from the right upper extremity and plan now to try to implant a new graft in her right or her left arm. DESCRIPTION OF PROCEDURE: Under general endotracheal anesthesia per PATROL SERGEANT, the patient was placed in supine position, prepped and draped in sterile manner. The left arm was examined with ultrasound and I noted the left axillary vein and artery were satisfactory caliber and there was no thrombosis or other sonographic abnormality is seen. A transverse axillary incision was made and the vessels exposed and controlled with Silastic loops. A single counterincision was made on the anterior arm just above the antecubital space. I chose the 6 mm diameter 44 cm long Artegraft and prepared it as per the locksmith helper's instructions with saline rinses and heparinized saline-soak. The graft was bevelled and the artery was opened and flushed proximally and distally with heparinized saline and an end-to-side graft to artery anastomosis done with 6-0 running Prolene and the suture line treated with BioGlue. The graft was flushed with saline and then when the loops were released, the suture line was hemostatic. The graft was then placed in a circuitous tunnel with the arterial limb anterior and I placed this tunnel as close to the surface as possible and I believe that it will be easily palpable and hopefully easily accessed. I used essentially the entire length of graft. The end was then bevelled and the vein occluded opened, flushed with heparinized saline and an end-to-side anastomosis end of graft to side of vein performed again with running 6-0 Prolene. I did not use BioGlue on the venous anastomosis. When the occluding clamps and loops are released, excellent flow was immediately established within the graft and the suture lines were all hemostatic. The wound was irrigated with Ancef and gentamicin solution. Hemostasis obtained with electrocautery. I left a 15-Cymraes round fluted drain in the axilla brought out through a stab incision on the medial aspect of the arm and attached to suction. The wounds were closed with interrupted inverted 3-0 Vicryl. The primary incision was closed with OPERATIVE REPORT [id number] NELSON GARDNER running intracuticular running 4-0 Monocryl and Dermabond glue. The counter incision was closed with interrupted Vicryl and Dermabond glue, Steri-Strips and both incisions were then dressed with Maxorb Ag, Tegaderm, and Cavilon skin prep. With a functioning fistula and good arterial flow in the arm, the patient was awakened and extubated and taken to the recovery room in stable condition. Blood loss during the procedure was about 15 cc. None was replaced. All sponges, instruments, and needles were accounted for. Probably one 15-Cymraes round Ravindra or fluted drain was utilized. No surgical specimen was submitted for histopathology. All sponges, instruments, and needles were accounted for. PLAN: The patient's new AV graft hopefully be ready for access in 2 weeks. We will have to make do using her tunneled catheter for a little while longer. I will plan to keep her in the hospital in observation this evening, mostly to be sure that her drain is cared for properly and that she has no early wound complications. Most likely her drain can be removed in the morning and she will be able to be discharged to home, although she lives at a considerable distance and it may be necessary for her to have dialysis here in [place] first. I plan to see her back in my office in 2 weeks. TRANSINT:[id number] Voice Confirmation ID: [id number] DOCUMENT ID: [id number] RENE MARR MD at 2050 CC: SUMIT DESIR MD [id number] DICTATION DATE: 03/05/18 152 HAZARDOUS MATERIAL SPECIALIST: 03/05/18 1743 [facility] 03/06/18 [facility] [address] [id number]
[2018-03-05 07:05] LABS: BASOPHILS 0.4 % (0-2); EOSINOPHILS 2.1 % (0-7); HEMATOCRIT 32.7 % (36.0-48.0); IMMATURE GRANULOCYTES 0.2 % (0-5); LYMPHOCYTES 23.5 % (15-50); MCH 30.2 pg (26.0-34.0); MCHC 30.6 g/dL (31.0-37.0); MCV 98.8 fL (80.0-100.0); MEAN PLATELET VOLUME 9.8 fL (7.4-10.4); MONOCYTES 5.4 % (2-11); NEUTROPHILS 68.4 % (40-80); PLATELET COUNT 224 10x3/uL (130-400); RBC 3.31 10x6/uL (4.00-5.40); RDW 15.5 % (11.5-14.5); WBC 5.7 10x3/uL (4.8-10.8)
[2018-03-05 07:17] LABS: ANION GAP 15.8 mmol/L (8-16); CARBON DIOXIDE 24.6 mmol/L (21.0-32.0); CREATININE - SERUM 6.3 mg/dL (0.6-1.3); POTASSIUM - SERUM 4.4 mmol/L (3.5-5.1)
[2018-03-05 07:22] LABS: APTT 24.2 SECONDS (22.8-39.4); INR 1.02 (0.85-1.17)
[2018-03-05 08:00] VITALS: BMI 48.4
[2018-03-05 16:06] VITALS: BP 145/56
[2018-03-05 16:08] VITALS: BP 145/56; BMI 48.4
[2018-03-05 19:09] VITALS: Ht 162.6 cm; Wt 125.6 kg
[2018-03-05 20:44] VITALS: BP 136/44
[2018-03-06 01:11] VITALS: BP 135/56
[2018-03-06 04:54] LABS: BASOPHILS 0.3 % (0-2); EOSINOPHILS 0.7 % (0-7); HEMATOCRIT 27.9 % (36.0-48.0); HEMOGLOBIN 8.6 g/dL (12-16); IMMATURE GRANULOCYTES 0.2 % (0-5); LYMPHOCYTES 14.2 % (15-50); MCH 30.5 pg (26.0-34.0); MCHC 30.8 g/dL (31.0-37.0); MCV 98.9 fL (80.0-100.0); MONOCYTES 7.8 % (2-11); NEUTROPHILS 76.8 % (40-80); PLATELET COUNT 215 10x3/uL (130-400); RBC 2.82 10x6/uL (4.00-5.40); RDW 15.7 % (11.5-14.5); WBC 6.1 10x3/uL (4.8-10.8)
[2018-03-06 05:09] LABS: ANION GAP 13.7 mmol/L (8-16); CALCIUM 9.3 mg/dL (8.5-10.1); CARBON DIOXIDE 24.2 mmol/L (21.0-32.0); PHOSPHOROUS 5.9 mg/dL (2.5-4.9); POTASSIUM - SERUM 4.9 mmol/L (3.5-5.1)
[2018-03-06 05:12] LABS: CREATININE - SERUM 7.9 mg/dL (0.6-1.3)
[2018-03-06 05:46] VITALS: BP 121/42
[2018-03-06 08:26] VITALS: BP 124/44
== END 2018-03-06 15:38 | disposition home or self-care (01) ==
LOC: D.OPS 06:02 → D.M2 15:31 → D.OPS 03-06 15:38
PROVIDERS: Anesthesiology; Internal Medicine Nephrology
DX: E11.22 Type 2 diabetes mellitus with diabetic chronic kidney disease (principal); I12.0 Hypertensive chronic kidney disease with stage 5 chronic kidney disease or end stage renal disease; N18.6 End stage renal disease; Z99.2 Dependence on renal dialysis; K21.9 Gastro-esophageal reflux disease without esophagitis; D63.1 Anemia in chronic kidney disease; N25.81 Secondary hyperparathyroidism of renal origin; E66.01 Morbid (severe) obesity due to excess calories; G47.30 Sleep apnea, unspecified; Z88.5 Allergy status to narcotic agent; Z79.02 Long term (current) use of antithrombotics/antiplatelets; Z79.01 Long term (current) use of anticoagulants; Z79.82 Long term (current) use of aspirin; Z79.84 Long term (current) use of oral hypoglycemic drugs; Z79.899 Other long term (current) drug therapy

== ENCOUNTER 2019-04-13 10:48 | Inpatient (IN) | payer MEDICARE, BC ==
[2019-04-13] VITALS (18 sets, daily range): BP systolic 54–109; BP diastolic 24–89; BMI 44.7
[~2019-04-13] VITALS: Ht 162.6 cm; Wt 124.2 kg
--- NOTE | ~2019-04-13 | OP ---
PATIENT NAME: NELSON SCANLON MEDICAL RECORD: [id number] :57 LOCATION:[facility] D.2306 ADMISSION DATE:04/13/19 SURGEON: RENE MARR MD DATE OF OPERATION: 04/19/2019 REFERRING PHYSICIAN: Marietta Viramontes MD DIAGNOSES: End-stage renal disease, dependence on hemodialysis; thrombosis of AV graft; necrotizing or gangrenous panniculitis; morbid obesity; and several others. OPERATIONS PERFORMED: Percutaneous mechanical thrombolysis with angioplasty of thrombosed left arm brachial axillary Acuseal PTFE graft with selective placement of catheter in the proximal brachial artery and performance of brachial artery arteriogram. SURGEON: Rene Marr MD ANESTHESIA: General endotracheal per GLOBAL PROJECT MANAGER. PREOPERATIVE NOTE: Ms. Scanlon is a desperately ill, morbidly obese -[place] female with end-stage renal disease. She has panniculitis with gangrene in addition to multiple areas of skin necrosis and pressure ulcers. She is still requiring intravenous Levophed to maintain her blood pressure, but on a lower dose than she had been requiring. She has a gangrenous left foot, which was preexisting, but certainly has not gotten any better on Levophed and has, at this time, a dialysis catheter I placed in her left groin through necrotic or infected tissue. We need, if possible, to get her AV graft open. Also, there is gangrenous or near gangrenous tissue of her abdominal pannus, which needs to be resected as a source of sepsis. DESCRIPTION OF PROCEDURE: With the patient under anesthesia, in supine position, she was prepped and draped in sterile manner. The left arm AV graft was accessed twice in opposing directions with micropuncture, which led up to placement of 6-[place] Islander introducers. A guidewire was advanced through the venous anastomosis and contrast injected to demonstrate central veins were open or patency of the axillary, subclavian, and innominate vein. I then used an 8-mm diameter angioplasty balloon to lyse and macerate thrombus within the venous limb of the graft and the venous outflow tract. Macerated clot was aspirated through the 6-[place] Islander introducers. Contrast injection revealed some irregularity at the margins of the graft, but no obstruction to outflow. The arterial limb was then cleared of clot in a similar way and contrast injection demonstrated irregularities of the arterial limb in the JA segment and of the arterial anastomosis where there was about a 50% stenosis. This was dilated with a 6-mm angioplasty balloon and the 8-mm balloon was used again to macerate and lyse thrombus in the JA segment in the body of the graft. Flow was restored in the graft. The patient was systemically heparinized. The 6-[place] Islander introducers were removed and hemostasis was obtained with [id number]-so-puxxu 4-0 Prolene sutures and period of direct pressure. Dressings of Maxorb Ag, Tegaderm, and Cavilon skin prep were applied. During the procedure, I passed a guidewire and a diagnostic catheter across the arterial anastomosis and proximally in the brachial artery to the axilla and OPERATIVE REPORT [id number] NELSON SCANLON injected contrast, performing a selective arteriogram of the brachial artery followed through to the mid forearm. There was no evidence of any embolization or arterial stenoses which might have reduced flow and led to the thrombosis of the graft. Attention was turned to the patient's panniculus, groins, and pubis. These areas were cleansed with Hibiclens and hydrogen peroxide, removing as much skin and exudate as possible. The panniculus in the areas was obviously necrotic or nearly so and it was necessary to excise a portion of this, although I did not perform a complete panniculectomy at this time. I excised equivalent skin and subcutaneous tissue of about a 20 cm long and a 10 cm wide segment or approximately 200 square centimeters. Adipose tissue extended down to the anterior rectus sheath, so this was a fairly large specimen. Hemostasis was obtained with electrocautery and with suture ligatures of 3-0 Vicryl. The wound was packed with gauze wet with Dakin's solution and further sterile dry dressings were applied over that. The patient was then awakened, extubated, and taken to the recovery room in stable condition. The necrotic tissue was not sent for histologic study. The patient will need to be returned to the operating room in the near future for a formal panniculectomy. TRANSINT:[id number] Voice Confirmation ID: [id number] DOCUMENT ID: [id number] RENE MARR MD CC: [id number] DICTATION DATE: 04/26/19 154 VETERINARY MANAGER: 04/26/19 165 [facility] [address] [place] [address]
--- NOTE | ~2019-04-13 | OP ---
PATIENT NAME: NELSON SCANLON MEDICAL RECORD: [id number] LOCATION:[facility] [id number] ADMISSION DATE:04/13/19 SURGEON: RENE MARR MD DATE OF OPERATION: 04/15/2019 PREOPERATIVE DIAGNOSES: End-stage renal disease and dependence on hemodialysis and thrombosed left arm AV graft and gangrenous panniculitis and gangrenous left foot and multiple decubiti pressure ulcers in areas of necrotic skin over the thighs, buttocks, and abdomen. POSTOPERATIVE DIAGNOSES: End-stage renal disease and dependence on hemodialysis and thrombosed left arm AV graft and gangrenous panniculitis and gangrenous left foot and multiple decubiti pressure ulcers in areas of necrotic skin over the thighs, buttocks, and abdomen. ADDITIONAL DIAGNOSES: Deep vein thrombosis with bilateral femoral vein thrombus and 90% stenosis of the left common iliac vein. OPERATION PERFORMED: Ultrasound-guided percutaneous access of the left superficial femoral vein followed by performance of an inferior vena cavogram and balloon angioplasty of common iliac stricture and insertion of a left femoral HemoSplit. SURGEON: Rene Marr MD ANESTHESIA: Reassurance and monitoring without sedation or anesthetic given. REFERRING PHYSICIAN: Marietta Viramontes MD PREOPERATIVE NOTE: Ms. 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 DESCRIPTION OF PROCEDURE: With the patient not anesthetized or sedated in supine position, she was prepped and draped in a sterile manner. I had examined her with ultrasound prior to that and noted that the internal jugular veins were both occluded and there was thrombus within the common femoral veins bilaterally and the sclerotic changes on the right seemed worse than the left. Therefore, the left femoral vein is approached first. Using ultrasound guidance, I placed a micropuncture needle directly into the superficial femoral vein just beneath the common femoral vein and I was able to with some difficulty thread a guidewire under fluoroscopy. I inserted then a 4-Welsh catheter into the distal external iliac vein and performed an inferior venacavogram, which demonstrated additional thrombus in the iliac vein along with a severe stenosis of the left common femoral vein at the confluence of the iliac veins to form the inferior vena cava. The inferior vena cava itself had a normal appearance. I was able to insert a 7-Welsh introducer over the guidewire, although this required several different introducer dilators over an Amplatz wire due to the severe scarring in the area. This was very difficult to insert. I then performed a balloon dilatation of the iliac artery stenosis and confirmed a 90% stenosis and obtained full effacement of the balloon and subsequent contrast injection revealed a satisfactory result and I was then able to insert a 35 cm HemoSplit over a guidewire with its tip reaching into the distal inferior vena cava. Both lumens were aspirated and free return of blood confirmed. They were OPERATIVE REPORT [id number] SCANLON,GLENADINE L then flushed with saline and heparin locked, clamped, and capped. The catheter was sutured in place with 2-0 Prolene and a standard CVL dressing with chlorhexidine Biopatch was applied. I should note that this central venous line was inserted through probably or potentially infected necrotic and ischemic skin and subcutaneous tissues as the patient has extensive ongoing skin necrosis, particularly of the panniculus which hangs down over the groins and upper thighs, but also of the skin of the thighs themselves. She will be requiring return to the operating room for debridement, etc., if she responds to hydration and can be stable enough to return to the operating room. TRANSINT:[id number] Voice Confirmation ID: [id number] DOCUMENT ID: [id number] RENE MARR MD CC: [id number] DICTATION DATE: 04/26/19 1505 WINE MAKER: 04/26/19 1607 ADM IN [facility] [address] [place] [address]
[2019-04-13] MEDS ORDERED: RENA-VITE TABL0.8 MG PO (11:01)
[2019-04-13 11:54] LABS: BASOPHILS 0.1 % (0-2); EOSINOPHILS 0 % (0-7); HEMATOCRIT 29.4 % (36.0-48.0); HEMOGLOBIN 9.3 g/dL (12-16); IMMATURE GRANULOCYTES 0.4 % (0-5); LYMPHOCYTES 5.6 % (15-50); MCH 29.9 pg (26.0-34.0); MCHC 31.6 g/dL (31.0-37.0); MCV 94.5 fL (80.0-100.0); MEAN PLATELET VOLUME 9.8 fL (7.4-10.4); MONOCYTES 3.2 % (2-11); NEUTROPHILS 90.7 % (40-80); PLATELET COUNT 238 10x3/uL (130-400); RBC 3.11 10x6/uL (4.00-5.40); RDW 16.4 % (11.5-14.5); WBC 17.7 10x3/uL (4.8-10.8)
--- NOTE | 2019-04-13 12:01 | NUR ---
RIGHT INNER THIGH 2 STAGE 2 WOUNDS. LOWER ABDOMINAL LARGE, LEFT INTERIOR THIGH, BILATERAL LOWER EXTREMETIES OPEN WOUNDS
--- NOTE | 2019-04-13 12:15 | NUR ---
RT BEDSIDE, ABGS DRAWN
[2019-04-13 12:20] LABS: APTT 28.2 SECONDS (22.8-39.4); INR 1.31 (0.85-1.17); PROTIME 15.7 SECONDS (11.6-15.0)
[2019-04-13 12:31] LABS: ALBUMIN 2.4 g/dL (3.4-5.0); ALKALINE PHOSPHATASE 138 U/L (46-116); ALT (SGPT) 25 U/L (10-68); BILIRUBIN - TOTAL 1.03 mg/dL (0.2-1.3); CALC OSMOLALITY 318 mosm/kg (275-300); CALCIUM 10.7 mg/dL (8.5-10.1); CARBON DIOXIDE 17.8 mmol/L (21.0-32.0); CHLORIDE - SERUM 97 mmol/L (98-107); CKMB 2.4 U/L (0.0-3.6); CREATINE KINASE 75 UL (21-215); GLUCOSE 309 mg/dL (74-106); PROTEIN - SERUM 8.2 g/dL (6.4-8.2); SODIUM 136 mmol/L (136-145); UREA NITROGEN 111 mg/dL (7-18); eGFR NON AFRICAN AMERICAN 2 mL/min (90-120)
[2019-04-13 12:31] LABS: APPEARANCE SL CLDY (CLEAR); COLOR DK YELLOW (YELLOW); NITRITE NEGATIVE (NEGATIVE); PROTEIN 2+ mg/dL (NEGATIVE); SPECIFIC GRAVITY 1.015 (1.005-1.020)
[2019-04-13 12:32] LABS: POTASSIUM - SERUM 7.1 mmol/L (3.5-5.1); TROPONIN-I 0.651 ng/mL (0.000-0.060)
[2019-04-13 12:32] LABS: BACTERIA FEW /hpf (NONE SEEN); BILIRUBIN NEGATIVE (NEGATIVE); GLUCOSE 100 mg/dL (NEGATIVE); KETONE SMALL mg/dL (NEGATIVE); MUCUS <1+ /lpf (NONE SEEN); RED CELLS - URINE 0-5 /hpf (0-5); UROBILINOGEN NORMAL (NORMAL)
--- NOTE | 2019-04-13 13:27 | NUR ---
REPORT CALLED TO RICHA BOSWELL BY SBAR FORMAT
--- NOTE | 2019-04-13 13:30 | NUR ---
TRANSPORTED TO FLOOR, CONDITION STABLE.
--- NOTE | 2019-04-13 14:02 | NUR ---
DR. WAGNER NOTIFIED OF CONSULT
--- NOTE | 2019-04-13 15:06 | NUR ---
Pt admitted to ICU with several wounds. The dorsal aspect of left foot has an open wound measuring 7.5cm x 9cm x 0.4cm. Wound bed has lopez/bal necrotic tissue. The #4 toe on left foot is black and necrotic. Uppermost inner thighs have open wounds which extend back nearly to gluteal folds. When abdominal fold were a large area of escar was noted where the 2 folds rest on each other. In the crease between folds the skin is excorated, red and odorous. Recommended painting left foot and #4 toe with betadine. Washing periarea, thighs with soap and water, rinsing well, patting dry and covering open areas with ABD pads (changing them when they become soiled). Wound care will monitor.
--- NOTE | 2019-04-13 15:40 | NUR ---
REC'D PT FROM ICU. AAOX1 CONFUSED. DAISY, GRAPHICS SPECIALIST NURSE IN DOING INITIAL ADMISSION HISTORY AND SCREENINGS. NO S/S OF ACUTE DISTRESS. CL IN PLACE.
--- NOTE | 2019-04-13 16:32 | MORECARE ---
CASE MANAGEMENT DISCHARGE SUMMARY PATIENT: NELSON GARDNER UNIT: [id number] ADM DATE: 04/13/19 AGE: 64 : 57 SEX: F ROOM/BED: D.2306 AUTHOR: BONG SAMAYOA PHYSICIAN: REFERRING PHYSICIAN: ANTIONETTE TANG MD DATE OF SERVICE: 04/13/19 Discharge Plan Patient Name: NELSON GARDNER [facility] [facility] 1955 Planned Disposition: Home Anticipated Discharge Date: Discharge Date: Expected LOS: Initial Reviewer: [email or web address] Initial Review Date: 04/13/2019 Generated: 04/13/19 5:32 pm DCPIA - Discharge Planning Initial Assessment Updated by [email or web address]: Gwen Dukes on 04/13/19 4:32 pm * Is the patient Alert and Oriented? Yes * How many steps to enter\exit or inside your home? * PCP MARIA E * Pharmacy [facility] * Preadmission Environment Home with Family * ADLs Independent * Other Equipment CANE, WALKER, CPAP * List name and contact numbers for known caregivers / representatives who currently or will assist patient after discharge: BRIAN PURI - SISTER- [phone] MARIA ESTHER GARDNER - DAUGHTER- [phone] [place] [phone] * Verbal permission to speak to the caregivers and representatives has been obtained from the patient. Yes * Community resources currently utilized None * Additional services required to return to the preadmission environment? No * Can the patient safely return to the preadmission environment? Yes * Has this patient been hospitalized within the prior 30 days at any hospital? No Patient Name: NELSON GARDNER Page [id number] at 1632 All edits/amendments must be made on the electronic document DICTATION DATE: 04/13/19 163 MANAGER OF RECRUITING: PASTOR 04/13/19 163 RPT#: [id number] DC DATE: STATUS: ADM IN [facility] [address] [place] [address] END OF REPORT
--- NOTE | 2019-04-13 16:39 | MORECARE ---
CASE MANAGEMENT DISCHARGE SUMMARY PATIENT: NELSON GARDNER UNIT: [id number] ADM DATE: 04/13/19 AGE: 64 : 57 SEX: F ROOM/BED: D.2306 AUTHOR: YAO,DOC PHYSICIAN: REFERRING PHYSICIAN: ANTIONETTE TANG MD DATE OF SERVICE: 04/13/19 Discharge Plan Patient Name: NELSON GARDNER Facility: [facility]:[place] : 1955 Planned Disposition: Home Anticipated Discharge Date: Discharge Date: Expected LOS: Initial Reviewer: [email or web address] Initial Review Date: 04/13/2019 Generated: 04/13/19 5:39 pm Comments DCP- Discharge Planning Updated by [email or web address]: Gwen Dukes on 04/13/19 3:[address] Patient Name: NELSON GARDNER Admission Status: ER Accout number: [id number] Admission Date: 04-13-2019 : 1955 Admission Diagnosis: Attending: ANTIONETTE TANG Current LOS: 1 Anticipated DC Date: Planned Disposition: Home Primary Insurance: MEDICARE A & B Discharge Planning Comments: CM met with patient and sister Brian Puri [phone] at bedside after explaining CM role and obtaining verbal consent. Patient lives at home with her mother, daughter, and grand-daughter and plans to return there upon discharge. Patient feels this would be a safe discharge. CM discussed availability / needs of home health and medical equipment. Patient has hemodialysis [facility] in [place] @ 7am. Patient has a walker, cane and CPAP @ home. Patient denies any discharge needs at this time. Patient states she will have family drive her home upon discharge. CM will continue to follow and assist as needed with discharge planning / needs. Ribbon Winder: Gwen Dukes DCPIA - Discharge Planning Initial Assessment Updated by [email or web address]: Gwen Dukes on 04/13/19 4:32 pm * Is the patient Alert and Oriented? Yes * How many steps to enter\exit or inside your home? * PCP SANDERSON * Pharmacy [facility] * Preadmission Environment Home with Family * ADLs Independent * Other Equipment CANE, WALKER, CPAP * List name and contact numbers for known caregivers / representatives who currently or will assist patient after discharge: BRIAN PURI - SISTER- [phone] MARIA ESTHER GARDNER - DAUGHTER- [phone] OR [phone] * Verbal permission to speak to the caregivers and representatives has been obtained from the patient. Yes * Community resources currently utilized None * Additional services required to return to the preadmission environment? No * Can the patient safely return to the preadmission environment? Yes * Has this patient been hospitalized within the prior 30 days at any hospital? No Last DP export: 04/13/19 3:32 pm Patient Name: NELSON GARDNER Page [id number] at 1639 All edits/amendments must be made on the electronic document DICTATION DATE: 04/13/191638 WELLNESS PROGRAM ADMINISTRATOR: PASTOR 04/13/191638 RPT#: [id number] DC DATE: STATUS: ADM IN [facility] [address] [place] [address] END OF REPORT
--- NOTE | 2019-04-13 17:30 | NUR ---
PREOP PT FOR OR. NO S/S OF ACUTE DISTRESS. CL IN PLACE.
[2019-04-13 17:39] LABS: ANION GAP 26.7 mmol/L (8-16); CALCIUM 10.3 mg/dL (8.5-10.1); CARBON DIOXIDE 20.1 mmol/L (21.0-32.0); CREATININE - SERUM 17.6 mg/dL (0.6-1.3)
[2019-04-13 17:45] LABS: POTASSIUM - SERUM 6.8 mmol/L (3.5-5.1)
[2019-04-13 18:09] LABS: CKMB 1.7 U/L (0.0-3.6); CREATINE KINASE 69 UL (21-215)
[2019-04-13 18:12] LABS: TROPONIN-I 0.616 ng/mL (0.000-0.060)
--- NOTE | 2019-04-13 18:23 | NUR ---
PT ROLLED OFF FLOOR WITH ICU, RN. NO S/S OF ACUTE DISTRESS. CL IN PLACE.
--- NOTE | 2019-04-13 20:25 | NUR ---
RECEIVED PATIENT TO ROOM 2306 FROM OR ACCOMPANIED BY OR STAFF. REPORT RECEIVED AT BEDSIDE. MONITORS CONNECTED TO PATIENT WITH ALARMS SET.VSS. SHIFT ASSESSMENT COMPLETED PER FLOW SHEET. NO ACUTE DISTRESS OBSERVED. CALL LIGHT REACH
--- NOTE | 2019-04-13 21:00 | NUR ---
RESTING WITH EYES CLOSED. ROUSES EASILY TO VOICE. VSS
--- NOTE | 2019-04-13 23:00 | NUR ---
REASSESSSMENT COMPLETED PER FLOW SHEET WITH NO ACUTE DISTRESS OBSERVED. VSS
[2019-04-14] VITALS (93 sets, daily range): BP systolic 48–144; BP diastolic 23–105
--- NOTE | 2019-04-14 00:05 | NUR ---
DIALYSIS NURSE AT BEDSIDE. PATIENT RECIEVING DIALYSIS. BP 77/35 LEVOPHED GTT INITIATED PER ORDER. ETHEL WITHOUT DIFF
[2019-04-14 02:12] LABS: CKMB 2.1 U/L (0.0-3.6); CREATINE KINASE 52 UL (21-215)
[2019-04-14 02:26] LABS: TROPONIN-I 0.708 ng/mL (0.000-0.060)
--- NOTE | 2019-04-14 03:00 | NUR ---
RESTING WITH EYES CLOSED, EASILY ROUSED AND ALERT. VSS. REASESSMENT COMPLETED PER FLOW SHEET WITH NO ACUTE DISTRESS OBSERVED.
--- NOTE | 2019-04-14 05:00 | NUR ---
RESTING WITH EYES CLOSED, EASILY ROUSED AND ALERT. VSS
[2019-04-14 08:19] LABS: BASOPHILS 0.1 % (0-2); EOSINOPHILS 0 % (0-7); HEMATOCRIT 29.6 % (36.0-48.0); HEMOGLOBIN 8.9 g/dL (12-16); IMMATURE GRANULOCYTES 0.6 % (0-5); LYMPHOCYTES 9.4 % (15-50); MCH 29.1 pg (26.0-34.0); MCHC 30.1 g/dL (31.0-37.0); MONOCYTES 4.9 % (2-11); PLATELET COUNT 212 10x3/uL (130-400); RBC 3.06 10x6/uL (4.00-5.40); RDW 16.7 % (11.5-14.5)
[2019-04-14 08:33] LABS: CALCIUM 9.9 mg/dL (8.5-10.1)
[2019-04-14 08:45] LABS: VANCOMYCIN - RANDOM 9.6 ug/mL (10.0-20.0)
[2019-04-14 09:01] LABS: MCV 96.7 fL (80.0-100.0)
[2019-04-14 10:07] LABS: ANION GAP 30.7 mmol/L (8-16); CARBON DIOXIDE 14.5 mmol/L (21.0-32.0); CREATININE - SERUM 12.9 mg/dL (0.6-1.3)
[2019-04-14 10:08] LABS: POTASSIUM - SERUM 6.2 mmol/L (3.5-5.1)
--- NOTE | 2019-04-14 16:29 | NUR ---
0700 ASLEEP IN BED AWAKENS TO VOICE NO DISTRESS NOTED ASSESSMENT COMPLETE
--- NOTE | 2019-04-14 16:30 | NUR ---
0900 SISTER, BRIAN AT BEDSIDE. EMOTIONAL SUPPORT GIVEN
--- NOTE | 2019-04-14 16:31 | NUR ---
[address] FOR SCAN OF ABD AND PELVIS
--- NOTE | 2019-04-14 16:32 | NUR ---
[id number] SISTER, BRIAN ASSISTED WITH LUNCH TRAY APPETITE FAIR
--- NOTE | 2019-04-14 16:34 | NUR ---
1415 ASP DEVELOPER PRESENT TO PREPARE PT FOR DIALYSIS
--- NOTE | 2019-04-14 16:51 | NUR ---
1650 DIALYSIS COMPLETE REMOVED 1L
--- NOTE | 2019-04-14 19:40 | NUR ---
REPORT REC'D AND CARE ASSUMED, PT RESTING IN BED ON O2 @ 3LITERS VIA NC, AWAKENS TO VERBAL STIMULI, DISORIENTED TO TIME AND PLACE AT THIS TIME, RIGHT UPPER ARM PIV WITH MANNIFOLD INFUSING D5W @ 75CC/HR, HEPARIN @ 1000 UNITS/HR, AND LEVOPHED @ 20MCG/MIN OR 37.5CC/HR, BP 128/91 WILL WEAN LEVOPHED TOLERATED, DRSG TO LOWER ABD CDI, LEFT UPPER ARM FISTULA WITH PULSE FELT BUT NO THRILL OR BRUIT, DRSGS TO BILAT FEET CDI, SR UP X 2, VISIBLE TO NURSES STATION.
--- NOTE | 2019-04-14 20:45 | NUR ---
EVENING MEDS GIVEN, PT RESTING EYES CLOSED, NO VISITORS IN AT THIS TIME, FSBS 348, 8 UNITS REGULAR INSULIN GIVEN ORDERED, WILL MONITOR CLOSELY FOR CHANGES.
--- NOTE | 2019-04-14 23:30 | NUR ---
REASSESSMENT COMPELTED, PT AWAKENS TO VERBAL STIMULI BUT NO VERBAL RESPONSE NOTED, DRIFTS RIGHT BACK TO SLEEP WITHOUT CONTINUOUS STIMULI, LEVOPHED REMAINS AT 18MCG/MIN, BP LABILE, WILL MONITOR CLOSELY FOR CHANGES.
[2019-04-15] VITALS (90 sets, daily range): BP systolic 66–151; BP diastolic 27–108; Ht 162.6 cm; Wt 124.2 kg
--- NOTE | 2019-04-15 01:30 | NUR ---
2ND PIV ATTEMPTED X 2 STICKS TO RIGHT FOREARM WITHOUT SUCCESS, PT REPOSIITIONED FOR COMFORT, VSS, TITIRATING LEVOPHED FOR EFFECT.
--- NOTE | 2019-04-15 03:00 | NUR ---
REASSESSMENT COMPLETED, PT ANSWERING YES OR NO QUESTIONS THIS AM, DENIES PAIN, BP STABLE, WILL CONT CURRENT POC
[2019-04-15 03:52] LABS: BASOPHILS 0.1 % (0-2); EOSINOPHILS 0.1 % (0-7); HEMATOCRIT 27.4 % (36.0-48.0); HEMOGLOBIN 8.6 g/dL (12-16); IMMATURE GRANULOCYTES 0.9 % (0-5); LYMPHOCYTES 5.6 % (15-50); MCH 29.6 pg (26.0-34.0); MCHC 31.4 g/dL (31.0-37.0); MCV 94.2 fL (80.0-100.0); MEAN PLATELET VOLUME 9.2 fL (7.4-10.4); MONOCYTES 6.6 % (2-11); NEUTROPHILS 86.7 % (40-80); PLATELET COUNT 252 10x3/uL (130-400); RBC 2.91 10x6/uL (4.00-5.40); RDW 16.6 % (11.5-14.5); WBC 13.8 10x3/uL (4.8-10.8)
[2019-04-15 04:06] LABS: ANION GAP 23.9 mmol/L (8-16); CALCIUM 10.2 mg/dL (8.5-10.1); CREATININE - SERUM 10.3 mg/dL (0.6-1.3); POTASSIUM - SERUM 5.9 mmol/L (3.5-5.1); VANCOMYCIN - RANDOM 20.5 ug/mL (10.0-20.0)
--- NOTE | 2019-04-15 05:30 | NUR ---
CHG BATH AND COMPLETE LINEN CHANGE PROVIDED, PT REPOSITIONED UP IN BED FOR COMFORT, TOLERATED WELL, HEELS BRIDGED FOR COMFORT, BP STABLE, WILL REPORT TO ONCOMING SHIFT.
--- NOTE | 2019-04-15 07:51 | NUR ---
0700 AWAKE FOLLOWS INSTRUCTIONS ASSESSMENT COMPLETE REMAINS NPO FOR SURGERY
[2019-04-15 18:33] LABS: HEMATOCRIT 29.5 % (36.0-48.0); HEMOGLOBIN 9.2 g/dL (12-16)
--- NOTE | 2019-04-15 19:00 | NUR ---
PATIENT CURRENTLY RECEIVING DIALYSIS.
--- NOTE | 2019-04-15 19:07 | NUR ---
1100 FAMILY MEMBER AT BEDSIDE EMOTIONAL SUPPORT GIVEN
--- NOTE | 2019-04-15 19:07 | NUR ---
0900 REMAINS NPO FOR PROCEEDURE
--- NOTE | 2019-04-15 19:08 | NUR ---
1300 WAITING ON OR TO CALL PREOP ORAL CAR3E PROVIDED
--- NOTE | 2019-04-15 19:09 | NUR ---
1500 PROCEEDURE POSTPONED TODAY BY DR MARR FAMILY NOTIFIED SWALLOW EVAL PEFORMED BY JOSSELIN ARGUELLES.
--- NOTE | 2019-04-15 19:11 | NUR ---
1700 FAMILY ASSISTING WITH FEEDING PATIENT.
--- NOTE | 2019-04-15 20:00 | NUR ---
PATIENT CURRENTLY RECEIVING DIALYSIS.
--- NOTE | 2019-04-15 21:00 | NUR ---
PATIENT LAYING IN BED. EYES CLOSED, CHEST RISING AND FALLING.
--- NOTE | 2019-04-15 22:00 | NUR ---
PATIENT LAYING IN BED. EYES CLOSED, CHEST RISING AND FALLING.
--- NOTE | 2019-04-15 23:00 | NUR ---
PATIENT LAYING IN BED. EYES CLOSED, CHEST RISING AND FALLING.
[2019-04-16] VITALS (104 sets, daily range): BP systolic 67–143; BP diastolic 20–511
--- NOTE | 2019-04-16 | NUR ---
PATIENT LAYING IN BED, EYES CLOSED, CHEST RISING AND FALLING.
--- NOTE | 2019-04-16 01:00 | NUR ---
PATIENT LAYING IN BED, EYES CLOSED, CHEST RISING AND FALLING.
--- NOTE | 2019-04-16 02:00 | NUR ---
PATIENT LAYING IN BED, EYES CLOSED, CHEST RISING AND FALLING.
--- NOTE | 2019-04-16 03:00 | NUR ---
PATIENT LAYING IN BED. EYES CLOSED, CHEST RISING AND FALLING.
--- NOTE | 2019-04-16 04:00 | NUR ---
PATIENT LAYING IN BED, EYES CLOSED, CHEST RISING AND FALLING.
--- NOTE | 2019-04-16 05:00 | NUR ---
PATIENT LAYING IN BED. EYES OPEN, NON VERBAL AT THIS TIME.
[2019-04-16 05:07] LABS: ANION GAP 20.6 mmol/L (8-16); CALCIUM 9.6 mg/dL (8.5-10.1); CARBON DIOXIDE 20.1 mmol/L (21.0-32.0); CREATININE - SERUM 8.4 mg/dL (0.6-1.3); VANCOMYCIN - RANDOM 15.9 ug/mL (10.0-20.0)
[2019-04-16 05:12] LABS: BASOPHILS 0.1 % (0-2); EOSINOPHILS 0.1 % (0-7); HEMATOCRIT 26.2 % (36.0-48.0); HEMOGLOBIN 8.2 g/dL (12-16); IMMATURE GRANULOCYTES 0.6 % (0-5); LYMPHOCYTES 5.5 % (15-50); MCH 29.2 pg (26.0-34.0); MCHC 31.3 g/dL (31.0-37.0); MCV 93.2 fL (80.0-100.0); MEAN PLATELET VOLUME 9.7 fL (7.4-10.4); MONOCYTES 7.9 % (2-11); NEUTROPHILS 85.8 % (40-80); PLATELET COUNT 181 10x3/uL (130-400); RBC 2.81 10x6/uL (4.00-5.40); RDW 16.3 % (11.5-14.5); WBC 15.7 10x3/uL (4.8-10.8)
[2019-04-16 05:13] LABS: POTASSIUM - SERUM 4.7 mmol/L (3.5-5.1)
--- NOTE | 2019-04-16 06:00 | NUR ---
PATIENT LAYING IN BED. EYES OPEN, SPOKE FEW WORD. NO COMPLAINTS AT THIS TIME.
--- NOTE | 2019-04-16 06:17 | NUR ---
PT RESTING IN BED WITH EYES CLOSED, CONTINUING TO WEAN LEVOPHED GTT, VSS AT THIS TIME.
--- NOTE | 2019-04-16 08:14 | NUR ---
IV NOTED NO LONGER PATENT AT THIS TIME, DCD TO RT UPPER ARM, CATHETER TIP INTACT. RENAL STNA ON UNIT SEEING PT. STATED OKAY TO ACCESS HEMOSPLIT, JUST REMOVE AND WASTE THE ACTIVASE FIRST. ALSO SURGEON CONSULT FOR CVL NOTED WAS CANCELED PER RENAL SINCE WILL USE HEMOSPLIT. PT LYING IN BED, EYES OPEN, LETHARGIC, WILL ONLY STATE NAME. PT TURNED Q2H. WILL CONTINUE PLAN OF CARE.
--- NOTE | 2019-04-16 10:39 | NUR ---
LYING IN BED WITH EYES OPEN AT THIS TIME. NO ACUTE DISTRESS NOTED. PT ABLE TO STATE NAME AND ANSWER YES/NO QUESTIONS. SISTER AT BEDSIDE. UPDATES PROVIDED. TURNED Q2H. ORAL CARE PROVIDED Q2H. WILL CONTINUE PLAN OF CARE.
--- NOTE | 2019-04-16 12:39 | NUR ---
PER RENAL INCREASE INSULIN SLIDING SCALE FROM LOW TO INTERMEDIATE SLIDING SCALE.
--- NOTE | 2019-04-16 14:52 | NUR ---
DRESSING CHANGES PERFORMED ACCORDING TO ORDER. NO ACUTE DISTRESS NOTED. PT ALSO GIVEN HIPICLENS BED BATH/CHG BATH AT THIS TIME. TURNED Q2H. WILL CONTINUE PLAN OF CARE.
--- NOTE | 2019-04-16 17:03 | NUR ---
UP IN BED AT THIS TIME EATING SUPPER WITH SET UP ASSIST FROM PTS SISTER. NO ACUTE DISTRESS NOTED. PT AWAKENS WHEN SPOKEN TO. SPEAKS WITH PTS SISTER, ANSWERS QUESTIONS. PT TURNED Q2H. ORAL CARE PROVIDED Q2H. WILL CONTINUE PLAN OF CARE.
--- NOTE | 2019-04-16 18:51 | NUR ---
DRESSING TO LT GROIN HEMOSPLIT CHANGED AT THIS TIME, PREVIOUS DRESSING SATURATED, DRESSING CHANGE PER HOSPITAL POLICY. NO ACUTE DISTRESS NOTED. TURNED Q2H. WILL CONTINUE PLAN OF CARE.
--- NOTE | 2019-04-16 19:30 | NUR ---
LEVOPHED GTT TITRATED DOWN TO 1 MCG/MIN PER MD ORDER.
--- NOTE | 2019-04-16 21:50 | NUR ---
NO VISITORS PRESENT AT THIS TIME, POSITIONED FOR COMFORT SUPPORTED WITH PILLOWS, CONT POC.
--- NOTE | 2019-04-16 21:56 | NUR ---
DR DESIR RETURNED PAGE REGARDING PT COMPLAINT OF GENERALIZED PAIN, ORDERS RECEIVED.
--- NOTE | 2019-04-16 23:30 | NUR ---
REASSESSMENT PER FLOWSHEET, NO ACUTE CHANGES NOTED AT THIS TIME, WILL MONITOR.
[2019-04-17] VITALS (47 sets, daily range): BP systolic 65–130; BP diastolic 22–96
--- NOTE | 2019-04-17 02:24 | NUR ---
PT MOANING AND COMPLAINING OF GENERALIZED SEVERE PAIN, PRN PO NORCO 7.5/325 MG ADMINISTERED PER MD ORDER.
--- NOTE | 2019-04-17 03:50 | NUR ---
PT RESTING IN BED WITH EYES CLOSED, CONT TO MONITOR.
[2019-04-17 05:56] LABS: BASOPHILS 0 % (0-2); EOSINOPHILS 0.8 % (0-7); HEMATOCRIT 21.9 % (36.0-48.0); IMMATURE GRANULOCYTES 1.6 % (0-5); LYMPHOCYTES 6.7 % (15-50); MCHC 31.5 g/dL (31.0-37.0); MEAN PLATELET VOLUME 9.7 fL (7.4-10.4); MONOCYTES 6.3 % (2-11); NEUTROPHILS 84.6 % (40-80); PLATELET COUNT 174 10x3/uL (130-400); RBC 2.38 10x6/uL (4.00-5.40); WBC 15.5 10x3/uL (4.8-10.8)
[2019-04-17 06:00] LABS: HEMOGLOBIN 6.9 g/dL (12-16)
[2019-04-17 06:19] LABS: ANION GAP 16.5 mmol/L (8-16); CALCIUM 9.3 mg/dL (8.5-10.1); CARBON DIOXIDE 24.8 mmol/L (21.0-32.0); CREATININE - SERUM 9.7 mg/dL (0.6-1.3); POTASSIUM - SERUM 4.3 mmol/L (3.5-5.1); VANCOMYCIN - RANDOM 27.7 ug/mL (10.0-20.0)
--- NOTE | 2019-04-17 06:33 | NUR ---
DR DESIR NOTIFIED OF CRITICAL HGB ON AM LAB, ORDERS RECEIVED.
--- NOTE | 2019-04-17 06:50 | NUR ---
PT C/O GENERALIZED PAIN 8/10 ON PAIN SCALE, PRN PO PAIN MED ADMINISTERED PER PT REQUEST/MD ORDER.
--- NOTE | 2019-04-17 08:01 | NUR ---
LYING IN BED AT THIS TIME WITH EYES OPEN. PT ABLE TO STATE NEEDS. STATES DISCOMFORT TO LT GROIN SITE FROM HEMOSPLIT. PHYSICIANS AWARE. NO ACUTE DISTRESS NOTED. PT TURNED Q2H. ORAL CARE PROVIDED Q2H. WILL CONTINUE PLAN OF CARE.
[2019-04-17 08:51] LABS: INR 1.22 (0.85-1.17); PROTIME 14.9 SECONDS (11.6-15.0)
[2019-04-17 08:52] LABS: APTT 79.1 SECONDS (22.8-39.4)
--- NOTE | 2019-04-17 10:00 | NUR ---
FAMILY AT BEDSIDE AT THIS TIME. NO ACUTE DISTRESS NOTED. VSS. PT DENEIS ANY NEEDS. TURNED Q2H. ORAL CARE PROVIDED Q2H. WILL CONTINUE PLAN OF CARE.
--- NOTE | 2019-04-17 10:30 | NUR ---
1 U PRBC ADMIN COMPLETE. VSS. NO ACUTE DISTRESS NOTED. WILL CONTINUE PLAN OF CARE.
--- NOTE | 2019-04-17 12:06 | NUR ---
LUNCH TRAY OFFERED TO PT; SHE REFUSED STATING SHE WAS NOT HUNGRY. WILL CONTINUE TO OFFER PT MEAL AND SNACKS.
--- NOTE | 2019-04-17 12:11 | NUR ---
UP IN BED RESTING AT THIS TIME. RESPIRATIONS STEADY AND UNLABORED. NO ACUTE DISTRESS NOTED. AWAKENS EASILY WHEN SPOKEN TO. WILL CONTINUE PLAN OF CARE.
--- NOTE | 2019-04-17 14:10 | NUR ---
NO ACUTE DISTRESS NOTED. NO CHANGE. PT ABLE TO STATE NEEDS. CALL LIGHT IN REACH. TURNED Q2H. ORAL CARE PROVIDED Q2H. WILL CONTINUE PLAN OF CARE.
--- NOTE | 2019-04-17 17:36 | NUR ---
PT REFUSED SUPPER TRAY STATING SHE ONLY WANTED TO EAT STRAWBERRY YOGURT. DIETARY CALLED FOR PT TO RECIEVE YOGURT. WILL OFFER TO PT WHEN RECIEVE FROM DIETARY.
--- NOTE | 2019-04-17 19:05 | NUR ---
DRESSINGS CHANGED AT THIS TIME PER ORDERS TO ABD FOLDS, GROIN, AND FEET. NO ACUTE DISTRESS NOTED. VSS. WILL CONTINUE PLAN OF CARE.
--- NOTE | 2019-04-17 19:15 | NUR ---
RESUMED CARE OF PT, ASSESSMENT PER FLOWSHEET. PT LETHARGIC BUT AROUSES TO VOICE AND ABLE TO FOLLOW COMMANDS. HR SR ON CM, SKIN ASSESSMENT PER FLOWSHEET, LT GROIN HEMOSPLIT PATENT, IV GTT'S PER FLOWSHEET. PT POSITIONED FOR COMFORT SUPPORTED WITH PILLOWS, VSS.
--- NOTE | 2019-04-17 21:30 | NUR ---
PT SISTER IN FOR VISITATION, ALL QUESTIONS ANSWERED, UPDATE PROVIDED.
--- NOTE | 2019-04-17 23:15 | NUR ---
REASSESSMENT PER FLOWSHEET, NO ACUTE CHANGES NOTED AT THIS TIME, REMAINS SR ON CM.
[2019-04-18] VITALS (20 sets, daily range): BP systolic 90–138; BP diastolic 39–80
--- NOTE | 2019-04-18 01:00 | NUR ---
PT POSITIONED FOR COMFORT SUPPORTED WITH PILLOWS, VSS, CONT TO MONITOR.
--- NOTE | 2019-04-18 02:22 | NUR ---
PT C/O GENERALIZED PAIN, REQUESTING PAIN MED, PRN PO MED ADMINISTERED PER MD ORDER.
[2019-04-18 04:13] LABS: BASOPHILS 0.1 % (0-2); EOSINOPHILS 0.8 % (0-7); IMMATURE GRANULOCYTES 1.8 % (0-5); LYMPHOCYTES 5.8 % (15-50); MCH 29.6 pg (26.0-34.0); MCHC 32.5 g/dL (31.0-37.0); MCV 91.2 fL (80.0-100.0); MEAN PLATELET VOLUME 10.4 fL (7.4-10.4); MONOCYTES 6.6 % (2-11); NEUTROPHILS 84.9 % (40-80); PLATELET COUNT 200 10x3/uL (130-400); RDW 15.5 % (11.5-14.5); WBC 17.5 10x3/uL (4.8-10.8)
[2019-04-18 04:17] LABS: HEMATOCRIT 27.1 % (36.0-48.0); HEMOGLOBIN 8.8 g/dL (12-16); RBC 2.97 10x6/uL (4.00-5.40)
[2019-04-18 04:22] LABS: INR 1.19 (0.85-1.17); PROTIME 14.6 SECONDS (11.6-15.0)
[2019-04-18 04:30] LABS: ANION GAP 20.3 mmol/L (8-16); CARBON DIOXIDE 22.4 mmol/L (21.0-32.0); CREATININE - SERUM 10.7 mg/dL (0.6-1.3); POTASSIUM - SERUM 4.7 mmol/L (3.5-5.1); VANCOMYCIN - RANDOM 24.7 ug/mL (10.0-20.0)
[2019-04-18 04:31] LABS: APTT 54.1 SECONDS (22.8-39.4)
--- NOTE | 2019-04-18 05:10 | NUR ---
AM PTT REVIEWED, HEPARIN GTT INCREASED FROM 1000 UNITS/HR TO 1100 UNITS/HR PER HEPARIN GTT PROTOCOL. PTT LAB ORDER PLACED FOR 1110 PER PROTOCOL.
--- NOTE | 2019-04-18 07:00 | NUR ---
RECEIVED BEDSIDE REPORT AND ASSUMED CARE OF PATIENT. VSS. TURNED AND REPOSTIONED IN BED. HEAD TO TOE ASSESSMENT COMPLETED. IV INFUSING TO LEFT GROIN HEMOSPLIT. HEPARIN GTT AT 11 CC/HR (1,100 UNITS). NS AT 30 CC/HR.
--- NOTE | 2019-04-18 08:15 | NUR ---
PATIENT REFUSED BREAKFAST.
--- NOTE | 2019-04-18 09:30 | NUR ---
CHANGED DRESSING AND CLEANED WOUNDS TO BILATERAL FEET.
--- NOTE | 2019-04-18 09:35 | NUR ---
Nutrition follow-up: Diet: Renal ADA puree with thin liquids Pt refusing meals; only wants strawberry yogurt No BM charted Pt lethargic 04/17 per nursing Labs reviewed Wt: 240# Bilateral food wounds Pt is not meeting estimated energy needs at this time. Recommend nutrition support (NGT vs PEG tube placement) and TF started if medically feasible. RDN following.
--- NOTE | 2019-04-18 11:00 | NUR ---
REASSESSMENT COMPLETE, NO CHANGES NOTED. VSS. PATIENT TURNED AND REPOSITIONED IN BED.
--- NOTE | 2019-04-18 13:00 | NUR ---
PATIENT STATES PAIN IMPROVED, TURNED AND REPOSITIONED. VSS. RESTING QUIETLY WATCHING TV.
--- NOTE | 2019-04-18 15:03 | NUR ---
REASSESSMENT COMPLETED. VSS. GIVEN ENSURE VANILLA SHAKE, DRANK 100%. TURNED AND REPOSITIONED IN BED. RESTING QUIETLY, WATCHING TV.
--- NOTE | 2019-04-18 16:30 | NUR ---
PATIENT REQUESTED STRAWBERRY YOGURT FOR DINNER TRAY, DIETARY CONTACTED AND BROUGHT UP WITH DINNER TRAY, ALSO PROVIDED ENSURE VANILLA SHAKE FOR PATIENT DUE TO DECREASED ORAL INTACT AT MEALS.
--- NOTE | 2019-04-18 17:01 | NUR ---
PATIENT ATE APPROXIMATELY 30% OF DINNER TRAY, 100% OF STRAWBERRY YOGURT. STATES FULL BUT WILL DRINK ENSURE, LEFT AT BEDSIDE. PATIENT TURNED AND REPOSITIONED IN BED.
--- NOTE | 2019-04-18 19:00 | NUR ---
REPORT RECEIVED. RECEIVED PATIENT IN BED, RESTING WITH EYES CLOSED. ROUSES EASILY AND ALERT. SHIFT ASSESSMENT COMPLETED PER FLOW SHEET WITH NO ACUTE DISTRESS OBSERVED. MONITORS CONNECTED TO PATIENT WITH ALARMS SET. VSS
--- NOTE | 2019-04-18 21:00 | NUR ---
RESTING WITH EYES CLOSED, EASILY ROUSED AND ALERT. VSS
[2019-04-19] VITALS (47 sets, daily range): BP systolic 61–154; BP diastolic 33–91
--- NOTE | 2019-04-19 01:00 | NUR ---
RESTING WITH EYES CLOSED, EASILY ROUSED AND ALERT.VSS
--- NOTE | 2019-04-19 01:20 | NUR ---
PAGED DR. LOPEZ FOR CLARIFICATION ORDER.
--- NOTE | 2019-04-19 03:00 | NUR ---
REASSESSMENT COMPLETED PER FLOW SHEET WITH NO CHANGES OR ACUTE DISTRESS OBSERVED. CALL LIGHT IN REACH. VSS
--- NOTE | 2019-04-19 05:00 | NUR ---
AWAKE AND ALERT. VSS. CALL LIGHT IN REACH
[2019-04-19 05:16] LABS: BASOPHILS 0.1 % (0-2); EOSINOPHILS 1.3 % (0-7); HEMATOCRIT 25.6 % (36.0-48.0); HEMOGLOBIN 8.4 g/dL (12-16); IMMATURE GRANULOCYTES 3.2 % (0-5); LYMPHOCYTES 5.6 % (15-50); MCH 30.2 pg (26.0-34.0); MCHC 32.8 g/dL (31.0-37.0); MCV 92.1 fL (80.0-100.0); MEAN PLATELET VOLUME 9.8 fL (7.4-10.4); MONOCYTES 7.4 % (2-11); NEUTROPHILS 82.4 % (40-80); PLATELET COUNT 197 10x3/uL (130-400); RBC 2.78 10x6/uL (4.00-5.40); RDW 15.7 % (11.5-14.5); WBC 19.4 10x3/uL (4.8-10.8)
[2019-04-19 05:51] LABS: ANION GAP 22.6 mmol/L (8-16); CALCIUM 9.5 mg/dL (8.5-10.1); CARBON DIOXIDE 21.5 mmol/L (21.0-32.0); CREATININE - SERUM 11.1 mg/dL (0.6-1.3); PHOSPHOROUS 5.9 mg/dL (2.5-4.9); POTASSIUM - SERUM 5.1 mmol/L (3.5-5.1); VANCOMYCIN - RANDOM 27.6 ug/mL (10.0-20.0)
--- NOTE | 2019-04-19 07:15 | NUR ---
REPORT RECEIVED. PT NPO FOR SURGERY TODAY AT 12. PT IS ALERT BUT CONFUSED. COMPLAINED OF PAIN WHEN EXAMINING WOUND ON ABD. PT HAS LEFT GROIN HEMASPLIT. PT IS A LEFT ARM RESERVE FOR FISTULA. PT IS A FSBS ACHS. SHE GETS DIALYSIS ON T, TH, SAT. SHE IS WEARING O2 AT 4L. NO COMPLAINTS OR NEEDS AT THIS TIME. WILL CONTINUE TO MONITOR.
--- NOTE | 2019-04-19 09:00 | NUR ---
BLOOD PRESSURE FLUCTUATING. CLOSELY MONITORING. REPOSITIONED BP CUFF. PT'S SISTER AT BEDSIDE. NO OTHER NEEDS AT THIS TIME.
--- NOTE | 2019-04-19 10:35 | NUR ---
PT AOX4. SISTER AT BEDSIDE. PT STATED SHE DID NOT WANT ANY COMFORT CARE MEASURES AT THIS TIME, THAT SHE WANTED ANY PROCEDURE/MEDICATION THAT WOULD GET HER WELL. TOLD PT AND SISTER THAT I WOULD MAKE A NOTE OF IT AND LET THE DOCTOR KNOW. THE SISTER STATED THAT DR TANG'S DONOR PROCESSOR HAD DISCUSSED WITH THEM THAT DR DESIR HAD SPOKEN WITH THE PT'S DAUGHTER AND THAT THE DAUGHTER WANTED HER TO HAVE COMFORT CARE. BP AND MAP ARE FLUCTUATING AT THIS TIME. CURRENTLY NOT ON LEVAPHED. WILL CONTINUE TO MONITOR.
--- NOTE | 2019-04-19 11:45 | NUR ---
PT PUT ON BEDPAN PER REQUEST. UNABLE TO HAVE BOWEL MOVEMENT. DID PASS GAS. REPOSITIONED WHEN BEDPAN REMOVED.
--- NOTE | 2019-04-19 13:30 | NUR ---
PT PREOPPED FOR SURGERY.
--- NOTE | 2019-04-19 14:51 | NUR ---
PT TAKEN TO OR. ON O2 AT 4L VIA NC. TRANSPORTED BY DR CHAVEZ AND SURGICAL NURSE.
--- NOTE | 2019-04-19 16:00 | NUR ---
PT IN OR.
--- NOTE | 2019-04-19 18:00 | NUR ---
PT IN OR.
--- NOTE | 2019-04-19 18:50 | NUR ---
PATIENT RETURNED FROM OR TO ICU ROOM [id number] ACCOMPANIED BY OR STAFF. REPORT RECEIVED AT BEDSIDE. PATIENT RECEIVED AWAKE AND ALERT. MONITORS CONNECTED TO PATIENT WITH ALARMS SET. VSS. ON LEVOPHED GTT. LARGE OCCLUSIVE DRESSING OBSERVED TO LOWER ABDOMINAL AREA.
[2019-04-19 20:02] LABS: INR 1.28 (0.85-1.17); PROTIME 15.4 SECONDS (11.6-15.0)
[2019-04-19 20:05] LABS: RBC 2.26 10x6/uL (4.00-5.40); WBC 28.2 10x3/uL (4.8-10.8)
[2019-04-19 20:07] LABS: HEMATOCRIT 21.2 % (36.0-48.0); HEMOGLOBIN 6.7 g/dL (12-16); MCH 29.6 pg (26.0-34.0); MCHC 31.6 g/dL (31.0-37.0); MCV 93.8 fL (80.0-100.0); MEAN PLATELET VOLUME 10.1 fL (7.4-10.4); RDW 16.1 % (11.5-14.5)
[2019-04-19 20:08] LABS: APTT 27.7 SECONDS (22.8-39.4)
--- NOTE | 2019-04-19 20:25 | NUR ---
SPOKE WITH DR. GOOD. REPORTED LOW HGB. NEW ORDERS RECEIVED
--- NOTE | 2019-04-19 22:10 | NUR ---
2 UNITS OF PRBCS TRANSFUSED PER DISASTER OR DAMAGE CONTROL SPECIALIST DURING HD. PATIENT ETHEL WELL. VSS. CONTINUES ON LEVOPHED GTT
[2019-04-20] VITALS (88 sets, daily range): BP systolic 57–147; BP diastolic 25–86
--- NOTE | 2019-04-20 01:00 | NUR ---
AWAKE AND ALERT. VSS. NO ACUTE DISTRESS OBSERVED. PATIENT REPOSITIONED WITH MODERATE AMOUNT OF BLOODY DRAINAGE FROM ABDOMINAL DRSG.
--- NOTE | 2019-04-20 05:00 | NUR ---
AWAKE AND ALERT. VSS
[2019-04-20 05:20] LABS: ANION GAP 19.9 mmol/L (8-16); CARBON DIOXIDE 23.9 mmol/L (21.0-32.0); PHOSPHOROUS 5.9 mg/dL (2.5-4.9); POTASSIUM - SERUM 4.8 mmol/L (3.5-5.1); VANCOMYCIN - RANDOM 20.7 ug/mL (10.0-20.0)
[2019-04-20 05:46] LABS: HEMATOCRIT 28.7 % (36.0-48.0); HEMOGLOBIN 9.5 g/dL (12-16); MCH 28.7 pg (26.0-34.0); MCHC 33.1 g/dL (31.0-37.0); MCV 86.7 fL (80.0-100.0); MEAN PLATELET VOLUME 10.2 fL (7.4-10.4); PLATELET COUNT 199 10x3/uL (130-400); RBC 3.31 10x6/uL (4.00-5.40); RDW 18.2 % (11.5-14.5); WBC 21.7 10x3/uL (4.8-10.8)
[2019-04-20 06:39] LABS: EOSINOPHILS 1 % (0-7); LYMPHOCYTES 5 % (15-50); MONOCYTES 1 % (2-11); NEUTROPHILS 90 % (40-80); PLATELET ESTIMATE NORMAL
--- NOTE | 2019-04-20 07:00 | NUR ---
SHIFT ASSESSMENT COMPLETED, PT CARE ASSUMED. MONITORS ON AND WORKING VITALS STABLE. PT AWAKE AND ALERT, CALL LIGHT WITHIN REACH, SEE FLOW SHEET FOR FURTHER DETIALS, WILL CONTINUE TO OBSERVE.
--- NOTE | 2019-04-20 09:00 | NUR ---
PT TURNED AND REPOSITIONED FOR COMFORT, MONITORS ON AND WORKING, VITALS STABLE. WILL CONTINUE TO OBSERVE.
--- NOTE | 2019-04-20 11:00 | NUR ---
PT TURNED AND REPOSITIONED FOR COMFORT, ORAL CARE PROVIDED AT THIS TIME, ASSISTED PT WITH LUNCH, PT TOLERATED WELL. MONITORS ON AND WORKING, VITALS STABLE. ORDER PUT IN FOR AIR OVERLAY MATTRESS. CALL LIGHT WITHIN REACH, WILL CONTINUE TO OBSERVE.
--- NOTE | 2019-04-20 12:00 | NUR ---
Nutrition follow-up: Diet: renal ada PO intake poor; however, pt is drinking Ensure and eating yogurt. Labs reviewed Wt: 244# With open abdominal wound; back to surgery Thursday for debridement RDN following.
--- NOTE | 2019-04-20 13:00 | NUR ---
PT TURNED AND REPOSITIONED FOR COMFORT, MONITORS ON AND WORKING, VITALS STABLE. PT AWAKE AND ALERT, CALL LIGHT WITHIN REACH, WILL CONTINUE TO OBSERVE.
--- NOTE | 2019-04-20 15:00 | NUR ---
PT TURNED AND REPOSITIONED FOR COMFORT, ORAL CARE PROVIDED AT THIS TIME. NO OTHER CHANGES SEE FLOW SHEET FOR FURTHER DETIALS, WILL CONTINUE TO OBSERVE.
[2019-04-20 16:11] LABS: AEROBE ID Final report (())
--- NOTE | 2019-04-20 19:45 | NUR ---
PT ALERT AND AWAKE, ORIENTED X2, MOMENTS OF CONFUSION PRESENT. WILL FOLLOW COMMANDS. RESPIRATIONS UNLABORED. ABD WITH DRSG INTACT, BLOODY DRAINAGE PRESENT, PADS AND LINENS CHANGED, PT CLEANED. PT REPOSITIONED, PROMINENCES BRIDGED. BILATERAL FEET WITH DRSGS CDI. VSS, LEVOPHED DISCONTINUED AT THIS TIME, SEE IV DRIP FLOWSHEET. ORAL CARE PROVIDED. PT DENIES NEEDS AT THIS TIME. CALL LIGHT WITHIN PT REACH, BED ALARM ON, ROOM VISIBLE FROM NURSES STATION. CPOC.
--- NOTE | 2019-04-20 20:50 | NUR ---
HS MEDS GIVEN, PRN PAIN MEDICATION PROVIDED UPON REQUEST. PT REPOSITIONED WITH PROMINENCES BRIDGED. ORAL CARE PROVIDED. PARTIAL LINEN CHANGE PROVIDED. VSS, PT DENIES FURTHER NEEDS AT THIS TIME. CALL LIGHT WITHIN PT REACH, BED ALARM ON, ROOM VISIBLE FROM NURSES STATION. CPOC.
--- NOTE | 2019-04-20 23:30 | NUR ---
REASSESSMENT COMPLETE, SEE FLOWSHEET. PT REPOSITIONED WITH PARTIAL LINEN CHANGE, PROMINENCES BRIDGED. ORAL CARE PROVIDED. DENIES NEEDS, VSS, CPOC.
[2019-04-21] VITALS (24 sets, daily range): BP systolic 76–134; BP diastolic 44–77
--- NOTE | 2019-04-21 03:36 | NUR ---
REASSESSMENT COMPLETE, SEE FLOWSHEET. PT REPOSITIONED WITH PROMINENCES BRIDGED. PARTIAL LINEN CHANGE. PRN PAIN MEDICATION PROVIDED UPON REQUEST. VSS, CALL LIGHT WITHIN PT REACH, ROOM VISIBLE FROM NURSES STATION. CPOC.
[2019-04-21 05:30] LABS: BASOPHILS 0.2 % (0-2); IMMATURE GRANULOCYTES 2.2 % (0-5); LYMPHOCYTES 5.2 % (15-50); MCH 29.1 pg (26.0-34.0); MEAN PLATELET VOLUME 9.7 fL (7.4-10.4); MONOCYTES 10.5 % (2-11); NEUTROPHILS 80.9 % (40-80); PLATELET COUNT 190 10x3/uL (130-400); RDW 18.6 % (11.5-14.5); WBC 19.7 10x3/uL (4.8-10.8)
--- NOTE | 2019-04-21 05:30 | NUR ---
CHG BATH GIVEN AND PARTIAL LINEN CHANGE PROVIDED.
[2019-04-21 05:43] LABS: HEMATOCRIT 22.7 % (36.0-48.0); HEMOGLOBIN 7.5 g/dL (12-16); RBC 2.58 10x6/uL (4.00-5.40)
[2019-04-21 05:50] LABS: ANION GAP 21.1 mmol/L (8-16); CALCIUM 8.9 mg/dL (8.5-10.1); CARBON DIOXIDE 21.1 mmol/L (21.0-32.0); CREATININE - SERUM 10.3 mg/dL (0.6-1.3); PHOSPHOROUS 6.9 mg/dL (2.5-4.9); POTASSIUM - SERUM 5.2 mmol/L (3.5-5.1)
--- NOTE | 2019-04-21 07:00 | NUR ---
SHIFT ASSESSMENT COMPLETED, PT CARE ASSUMED. MONITORS ON AND WORKING, VITALS STABLE. PT AWAKE AND ALERT, NO SIGNS/SYMPTOMS OF PAIN OR DISCOMFORT NOTED AT THIS TIME, CALL LIGHT WITHIN REACH, SEE FLOW SHEET FOR FURTHER DETAILS. WILL CONTINUE TO OBSERVE.
--- NOTE | 2019-04-21 09:00 | NUR ---
PT TURNED AND REPOSITIONED FOR COMFORT, MONITORS ON AND WORKING, VITALS STABLE. CALL LIGHT WITHIN REACH WILL CONTINUE TO OBSERVE.
--- NOTE | 2019-04-21 11:00 | NUR ---
NO CHANGES, SEE FLOW SHEET FOR FURTHER DETAILS, CALL LIGHT WITHIN REACH WILL CONTINUE TO OBSERVE.
--- NOTE | 2019-04-21 13:00 | NUR ---
PT TURNED AND REPOSITIONED FOR COMFORT, HD NURSE UNABLE TO ACCESS HEMOSPLIT. 2 UNITS PRBCS GIVEN, PT TOLERATED WELL, MONITORS ON AND WORKING VITALS STABLE WILL CONTINUE TO OBSERVE.
--- NOTE | 2019-04-21 15:00 | NUR ---
NO CHANGES SEE FLOW SHEET FOR FURTHER DETAILS, MONITORS ON AND WORKING VITALS STABLE. WILL CONTINUE TO OBSERVE
--- NOTE | 2019-04-21 17:00 | NUR ---
PT LYING IN BED RESTING MONITORS ON AND WORKING, VITALS STABLE WILL CONTINUE TO OBSERVE.
--- NOTE | 2019-04-21 19:00 | NUR ---
SHIFT ASSESSMENT COMPLETE. NO VISUAL CUES OF DISTRESS NOTED. VS STABLE AND AFEBRILE. WILL CONTINUE TO MONITOR.
[2019-04-21 19:07] LABS: HEMATOCRIT 26.8 % (36.0-48.0); HEMOGLOBIN 8.9 g/dL (12-16)
--- NOTE | 2019-04-21 21:00 | NUR ---
NO VISUAL CUES OF DISTRESS NOTED. VS STABLE. WILL CONTINUE TO MONITOR.
--- NOTE | 2019-04-21 21:00 | NUR ---
VS STABLE. NO VISUALL CUES OF DISTRESS NOTED. WILL MONITOR,.
--- NOTE | 2019-04-21 21:00 | NUR ---
VS STABLE. NO VISUALL CUES OF DISTRESS NOTED. WILL MONITOR,.
--- NOTE | 2019-04-21 23:00 | NUR ---
VS STABLE. NO VISUALL CUES OF DISTRESS NOTED. WILL MONITOR,.
--- NOTE | 2019-04-21 23:00 | NUR ---
VS STABLE. NO VISUALL CUES OF DISTRESS NOTED. WILL MONITOR,.
[2019-04-22] VITALS (46 sets, daily range): BP systolic 66–140; BP diastolic 31–113
--- NOTE | 2019-04-22 01:00 | NUR ---
VS STABLE. NO VISUALL CUES OF DISTRESS NOTED. WILL MONITOR,.
--- NOTE | 2019-04-22 01:00 | NUR ---
VS STABLE. NO VISUALL CUES OF DISTRESS NOTED. WILL MONITOR,.
--- NOTE | 2019-04-22 03:00 | NUR ---
VS STABLE. NO VISUALL CUES OF DISTRESS NOTED. WILL MONITOR,.
--- NOTE | 2019-04-22 05:00 | NUR ---
VS STABLE. NO VISUALL CUES OF DISTRESS NOTED. WILL MONITOR,.
--- NOTE | 2019-04-22 05:00 | NUR ---
VS STABLE. NO VISUALL CUES OF DISTRESS NOTED. WILL MONITOR,.
[2019-04-22 05:01] LABS: BASOPHILS 0.2 % (0-2); EOSINOPHILS 2.2 % (0-7); HEMATOCRIT 27.4 % (36.0-48.0); HEMOGLOBIN 9.3 g/dL (12-16); IMMATURE GRANULOCYTES 2.8 % (0-5); LYMPHOCYTES 6.6 % (15-50); MCH 29.4 pg (26.0-34.0); MCHC 33.9 g/dL (31.0-37.0); MCV 86.7 fL (80.0-100.0); MONOCYTES 10.5 % (2-11); NEUTROPHILS 77.7 % (40-80); PLATELET COUNT 197 10x3/uL (130-400); RDW 17.8 % (11.5-14.5); WBC 19.9 10x3/uL (4.8-10.8)
[2019-04-22 05:05] LABS: RBC 3.16 10x6/uL (4.00-5.40)
[2019-04-22 05:21] LABS: ANION GAP 22.7 mmol/L (8-16); CALCIUM 9.3 mg/dL (8.5-10.1); CARBON DIOXIDE 20.8 mmol/L (21.0-32.0); CREATININE - SERUM 10.7 mg/dL (0.6-1.3); PHOSPHOROUS 6.6 mg/dL (2.5-4.9); POTASSIUM - SERUM 5.5 mmol/L (3.5-5.1)
--- NOTE | 2019-04-22 07:04 | NUR ---
VS STABLE. NO VISUALL CUES OF DISTRESS NOTED. WILL MONITOR,.
--- NOTE | 2019-04-22 08:17 | NUR ---
Nutrition follow-up: Pt NPO due to surgery today PO intake continues to be poor labs reviewed Recommend NGT vs PEG tube placement and Nepro started @ 25 ml/hr with increase to goal rate of 50 ml/hr with 10 ml H2O flsuh Q hour due to wounds/surgery RDN following.
--- NOTE | 2019-04-22 12:57 | NUR ---
DIALYSIS COORDINATOR: [facility] @ 6:00AM. MAYCOL FELICIANO.
--- NOTE | 2019-04-22 14:32 | NUR ---
0700 ASSESSMENT COMPLETE IN BED RESTING QUIETLY AROUSES TO VOICE ABD DSG WITH BLOODY DRAINAGE NOTED KERLEX DSG OFF OF JACQUELYN FEET NECROTIC TOES AND AREAS OF FEET NOTED VENOUS STASIS TO JACQUELYN LOWER LEGS INNER THIGHS WITH SORES AND SCABS NOTED PT IS DIALYSIS PATIENT AND ANURIC. NO LIU NOTED NS AT 10ML/HR INFUSING TO HEMESPLIT TO LEFT GROIN SITE DSG INTACT
--- NOTE | 2019-04-22 14:37 | NUR ---
0805 MOANING ASKING FOR PAIN MED BUPRENEX 1.5 ML GIVEN IV FAMILY MEMBER AT BEDSIDE EMOTIIONAL SUPPORT GIVEN
--- NOTE | 2019-04-22 14:39 | NUR ---
1131 PRE OP CALLED PRE OP MEDS GIVEN
--- NOTE | 2019-04-22 14:40 | NUR ---
1200 SISTER, BRIAN, AT BEDSIDE UPDATE PROVIDED PT RESTING QUIETLY
--- NOTE | 2019-04-22 14:42 | NUR ---
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
--- NOTE | 2019-04-22 14:45 | NUR ---
1421 OR STAFF PRESENT TO TAKE PT TO SURGERY
--- NOTE | 2019-04-22 16:14 | NUR ---
1431 GLUCOSE TAKEN PRIOR TO LEAVING FOR OR PER ANESTHESIA REQUEST [facility]. NO COVERAGE GIVEN PRIOR TO SURGERY.
--- NOTE | 2019-04-22 16:48 | NUR ---
1636 RETURNED TO ROOM FROM PACU LEVOPHED INFUSING AT 8MCG/MIN. BP137/63 MAP 93 DECREASED LEVOPHED TO 7MCG/MIN PER PROTOCOL WOUND VAC TO ABDOMINAL WOUND SEAL INTACT BLOODY DRAINAGE NOTED IN CONTAINER LIDIA AVINA CDI NOTED TO LEFT GROIN NOTIFIED SISTER IN WAITING ROOM THAT SHE MAY COME TO BEDSIDE
--- NOTE | 2019-04-22 17:00 | NUR ---
1655 B/P 100/99 MAP 103 DECREASED LEVOPHED TO 6MCG/MIN
--- NOTE | 2019-04-22 19:55 | NUR ---
DR. TANG AT BEDSIDE AND ORDERED TO GIVE THE PATIENT NARCAN 0.5 MG IV DUE TO THE PATIENT HAVING DECREASED RESPONSIVENESS AND ONLY RESPONDING TO PAINFUL STIMULI.
--- NOTE | 2019-04-22 19:57 | NUR ---
PT WAKING UP AND YELLING OUT. PT ASNWERING QUESTIONS AND FOLLOWING COMMANDS. DR. TANG NOTIFIED OF CHANGES, AND ADVISED TO CALL HIM WITH ANY CHANGES IN THE PATIENTS COND.
--- NOTE | 2019-04-22 20:14 | NUR ---
9587 STAINED GLASS GLAZIER SETING UP DIALYSIS MACHINE
--- NOTE | 2019-04-22 20:15 | NUR ---
194 PT YELLING OUT BLOODY DRAINAGE NOTED FROM ABDOMINAL/SURGICAL SITE WOUND VAC SEAL INTACT REINFORCED ABDOMINAL DRESSISNG. PT BECAME LETHARGIC AND UNRESPONSIVE DIALYSIS STOPPED DR TANG AT BEDSIDE ABGS DRAWN CMP, COAGS AND CBC ORDERED.
--- NOTE | 2019-04-22 20:15 | NUR ---
LINEN LINEN CHANGED DUE TO BLEEDING FROM DRESSING. PT MORE CALM AND ASKING QUESTION AT THIS TIME.
[2019-04-22 20:18] LABS: HEMATOCRIT 28.7 % (36.0-48.0); HEMOGLOBIN 9.4 g/dL (12-16); MCH 29.1 pg (26.0-34.0); MCHC 32.8 g/dL (31.0-37.0); MCV 88.9 fL (80.0-100.0); MEAN PLATELET VOLUME 9.8 fL (7.4-10.4); PLATELET COUNT 251 10x3/uL (130-400); RBC 3.23 10x6/uL (4.00-5.40); RDW 18.1 % (11.5-14.5); WBC 21.8 10x3/uL (4.8-10.8)
[2019-04-22 20:28] LABS: INR 1.27 (0.85-1.17); PROTIME 15.4 SECONDS (11.6-15.0)
--- NOTE | 2019-04-22 20:30 | NUR ---
PT MOANING OUT, WHEN ASKED WHAT WAS WRONG THE PATIENT STATED THAT THE NURSE CUT HER OUT OF HER GOWN. PT WAS REORIENTED AND INFORMED THAT HER GOWN WAS CHANGED DUE TO THE BLEEDING, PT STATED OK.
[2019-04-22 20:34] LABS: ALBUMIN 1.5 g/dL (3.4-5.0); ANION GAP 30.3 mmol/L (8-16); BILIRUBIN - TOTAL 0.84 mg/dL (0.2-1.3); CALCIUM 9.4 mg/dL (8.5-10.1); POTASSIUM - SERUM 5.6 mmol/L (3.5-5.1); PROTEIN - SERUM 6.8 g/dL (6.4-8.2)
[2019-04-22 20:37] LABS: CARBON DIOXIDE 15.3 mmol/L (21.0-32.0)
[2019-04-22 20:39] LABS: LYMPHOCYTES 3 % (15-50); MONOCYTES 9 % (2-11); NEUTROPHILS 85 % (40-80); PLATELET ESTIMATE NORMAL
[2019-04-22 20:40] LABS: TEAR DROP CELLS OCC
--- NOTE | 2019-04-22 21:00 | NUR ---
PT MORE ALERT TALKING WITH FAMILY, PT REQUESTING SOMETHING FOR PAIN
--- NOTE | 2019-04-22 23:00 | NUR ---
PT RESTING WITH EYES CLOSED, PT AWAKES TO NAME. PT THE FALLS BACK ASLEEP, RESP EVEN NON LABORED AT THIS TIME
[2019-04-23] VITALS (100 sets, daily range): BP systolic 72–131; BP diastolic 32–98
--- NOTE | 2019-04-23 01:00 | NUR ---
PT RESTING WITH EYES CLOSED, RESP EVEN NON LABORED, NO DISTRESS NOTED AT THIS TIME
--- NOTE | 2019-04-23 03:00 | NUR ---
PT RESTING WITH EYES CLOSED, AWAKES TO NAME, RESP EVEN NONLABORED, NO DISTRESS NOTED AT THIS TIME.
[2019-04-23 05:02] LABS: BASOPHILS 0.1 % (0-2); EOSINOPHILS 0.1 % (0-7); HEMATOCRIT 24.6 % (36.0-48.0); HEMOGLOBIN 8.3 g/dL (12-16); IMMATURE GRANULOCYTES 4.5 % (0-5); LYMPHOCYTES 5.7 % (15-50); MCH 29.7 pg (26.0-34.0); MCHC 33.7 g/dL (31.0-37.0); MCV 88.2 fL (80.0-100.0); NEUTROPHILS 81.6 % (40-80); PLATELET COUNT 235 10x3/uL (130-400); RBC 2.79 10x6/uL (4.00-5.40); RDW 17.9 % (11.5-14.5); WBC 22.6 10x3/uL (4.8-10.8)
--- NOTE | 2019-04-23 05:15 | NUR ---
WHILE GIVING PATIENT A BATH, WOUND VAC WAS NOTED TO HAVE LOST SUCTION, UPON CHECKING THE MACHINE HAS RAN OUT OF BATTERY, THE MACHINE CASTINGS PLASTERER WAS CALLED TO SEE IF SHE COULD BRING ONE.
[2019-04-23 05:20] LABS: ANION GAP 24.3 mmol/L (8-16); CALCIUM 9.3 mg/dL (8.5-10.1); CARBON DIOXIDE 18.5 mmol/L (21.0-32.0); CREATININE - SERUM 8.9 mg/dL (0.6-1.3); PHOSPHOROUS 7.9 mg/dL (2.5-4.9); POTASSIUM - SERUM 5.8 mmol/L (3.5-5.1)
--- NOTE | 2019-04-23 06:03 | NUR ---
WOUND VAC WAS RESTARED, AND DRESSING WAS REINFORMED ON THE LEFT LOWER ABD WITH TERGRADERM. PT ETHEL WELL, WOUND VAC SUCTION HAS SEROSANGEOUS FLUID IN HOSE.
--- NOTE | 2019-04-23 09:23 | NUR ---
0700 BEDSIDE REPORT RECEIVED FROM HOOD CHAUDHRY LEVOPHED INFUSING AT 6MCG/KG/MIN OR 11. 3ML/HOUR AND NS INFUSIING AT 10ML/HR TO LEFT GROIN HEMESPLIT SITE SATISFACTORY 02 ON AT 4L/HFNC O2 SAT 98% WOUND VAC TO ABDOMINAL INCISION WORKING PROPERLY ASSESSMENT COMPLETE
--- NOTE | 2019-04-23 09:31 | NUR ---
0839 C/O OF ABDOMINAL PAIN 06/21 NORCO 7.5 MG GIVEN PO WITH SIPS WATER
--- NOTE | 2019-04-23 10:25 | NUR ---
1000 FAMILY MEMBERS AT BEDSIDE UPDATE PROVIDED DECREASED PROPOFOL BU 5MCG NEW RATE 50 MCG/KG/MIN PATENT 3 ON RIKERS SEDATION SCALE
--- NOTE | 2019-04-23 10:26 | NUR ---
1015 RIKERS SCALE 3 REDUCED PROPOFOL INFUSION TO 45MCG/KG/MIN
--- NOTE | 2019-04-23 13:40 | NUR ---
0900 BRIAN, HER SISTER, AT BEDSIDE AN UPDATE WAS PROVIDED
--- NOTE | 2019-04-23 13:41 | NUR ---
1000 SRI CHAUDHRY INITIATING DIALYSIS TO MOISE AVINA
--- NOTE | 2019-04-23 14:36 | NUR ---
1200 DIALYSIS IN [facility] FAMILY MEMBERS AT BEDSIDE
--- NOTE | 2019-04-23 14:39 | NUR ---
1425 C/O PAIN NORCO 7.5MG PO GIVEN REPOSITIONED IN BED WARM BLANKET PROVIDED TV TURNED ON PER PT REQUEST
--- NOTE | 2019-04-23 17:12 | NUR ---
1615 FAMILY MEMBERS AT BEDSIDE EMOTIONAL SUPPORT GIVEN
--- NOTE | 2019-04-23 17:46 | NUR ---
6772 FAMILY AT BEDSIDE PATIENT GETTING SLEEPY RESTING WITH EYES CLOSED
--- NOTE | 2019-04-23 19:11 | NUR ---
1800 USING TEGREDERM TO STOP LEAK IN WOUND VAC
--- NOTE | 2019-04-23 19:35 | NUR ---
REPORT REC'D AND CARE ASSUMED, REC'D PT AWAKE AND ALERT TO PLACE AND PERSON, REORIENTED TO TIME, O2 @ 4LITER HIGH FLOW NOTED IN BED, OXYGEN PLACED BACK ON PT, CM-ST @ 106, LARGE LOWER ABDOMINAL WOUND VAC DRSG, OPEN WOUNDS TO INNER AND OUTER THIGHS, LEFT GROIN HEMOSPLIT WITH NS @ 10CC/HR AND LEVOPHED @ 15CC/HR OR 8MCG/MIN, DRSGS TO BILAT FEET CDI, WOUND VAC ALARMING BLOCKAGE WILL ADDRESS THERESA
--- NOTE | 2019-04-23 20:30 | NUR ---
NO VISITORS IN AT THIS TIME, PT RESTING QUIETLY IN BED, ASKED PT IS SHE WOULD LIKE HER TV ON, STATES "YES IF YOU DON'T MIND", TV TURNED ON AND CHANNEL FOUND FOR PT TO WATCH, VSS, LEVOPHED CONTINUES @ 8MCG/MIN
--- NOTE | 2019-04-23 21:00 | NUR ---
FSBS 149, NO COVERAGE REQUIRED AT THIS TIME.
--- NOTE | 2019-04-23 21:40 | NUR ---
WOUND VAC CONTINUES TO READ BLOCKAGE, WOUND CARE NURSE CONTACTED FOR ASSISTANCE WITH WOUND VAC.
--- NOTE | 2019-04-23 22:20 | NUR ---
STEVE SCANLON WOUND CARE NURSE @ BS LOOKING AT DRSG, DRSG PARTIALLY REMOVED AND NEW DRSG AND BLACK FOAM PLACED TO ALLOW FOR PROPER SEAL, UPON COMPLETION WOUND VAC SHOWED NO LEAKS AND SUCTION @ 125MM HG ORDERED, PT REPOSITIONED FOR COMFORT, BP 72/65, TITRATING LEVOPHED FOR EFFECT.
--- NOTE | 2019-04-23 23:15 | NUR ---
REASSESSMENT COMPLETED, PT RESTING WITH EYES CLOSED, CM-SR @ 98, BP STABLE, SR UP X 2, BED IN LOW POSITION, CALL LIGHT IN REACH, VISIBLE TO NURSES STATION.
[2019-04-24] VITALS (67 sets, daily range): BP systolic 85–130; BP diastolic 30–77
--- NOTE | 2019-04-24 01:30 | NUR ---
PT RESTING EYES CLOSED, RESP EVEN AND UNLABORED, VSS, WILL ATTEMPT TO WEAN LEVOPHED TOLERATED
--- NOTE | 2019-04-24 03:31 | NUR ---
REASSESSMENT COMPLETED, PT RESTING AT INTERVALS, ORIENTED TO PERSON ONLY AT THIS TIME, WEANING LEVOPHED TOLERATED, WILL CONT TO MONTIOR FOR CHANGES.
--- NOTE | 2019-04-24 06:00 | NUR ---
PT STATES "IT FEELS LIKE I AM BEING KICKED ON MY RIGHT SIDE " 1 NORCO TABLET GIVEN AT THIS TIME WITHOUT DIFFICULTY, NO VISITORS IN THIS AM
--- NOTE | 2019-04-24 06:45 | NUR ---
FSBS 232, 8 UNITS REGULAR INSULIN GIVEN PER SLIDING SCALE.
[2019-04-24 09:51] LABS: RBC 2.39 10x6/uL (4.00-5.40); WBC 20.9 10x3/uL (4.8-10.8)
[2019-04-24 09:53] LABS: HEMATOCRIT 21.6 % (36.0-48.0); MCH 29.3 pg (26.0-34.0); MCHC 32.4 g/dL (31.0-37.0); MCV 90.4 fL (80.0-100.0); MEAN PLATELET VOLUME 9.3 fL (7.4-10.4); PLATELET COUNT 221 10x3/uL (130-400); RDW 18.5 % (11.5-14.5)
[2019-04-24 09:56] LABS: ALBUMIN 1.3 g/dL (3.4-5.0); BILIRUBIN - TOTAL 0.81 mg/dL (0.2-1.3); CALCIUM 9.1 mg/dL (8.5-10.1); CREATININE - SERUM 7.3 mg/dL (0.6-1.3); PHOSPHOROUS 7.5 mg/dL (2.5-4.9); PROTEIN - SERUM 5.9 g/dL (6.4-8.2)
[2019-04-24 10:16] LABS: HEMATOCRIT 20.9 % (36.0-48.0)
[2019-04-24 10:18] LABS: HEMOGLOBIN 6.7 g/dL (12-16)
[2019-04-24 10:39] LABS: LYMPHOCYTES 10 % (15-50); MONOCYTES 3 % (2-11); NEUTROPHILS 80 % (40-80); PLATELET ESTIMATE NORMAL
--- NOTE | 2019-04-24 15:03 | NUR ---
0700 ASSESSMENT COMPLETE INCREASED LEVOPHED TO 2MCG/MIN ..SEE IV FLOW SHEET ORAL AND FACE CARE PROVIDED VOICES NO C/O PAIN
--- NOTE | 2019-04-24 15:06 | NUR ---
0900 FAMILY AT BEDSIDE EMOTIONAL SUPPORT GIVEN
--- NOTE | 2019-04-24 15:07 | NUR ---
1100 INFORMED ARTIE, RENAL STEAM FITTER HELPER, OF CRITAL H&H NEW ORDERS NOTED
--- NOTE | 2019-04-24 15:08 | NUR ---
1300 FULL LIQUID LUNCH TRAY ORDERED APPETITE GOOD SISTER FED PATIENT
--- NOTE | 2019-04-24 15:10 | NUR ---
1430 ONE UNIT PRBC COMPPLETE LEVOPHED OFF WHILE BLO;OD INFUSING DID NOT RESTART LEVOPHED AT THIS TIME B/P AND MAP AT ACCEPTABLE RANGE. PT RESTING QUIETLY
[2019-04-24 16:41] LABS: HEMATOCRIT 22.2 % (36.0-48.0)
[2019-04-24 16:43] LABS: HEMOGLOBIN 7.2 g/dL (12-16)
--- NOTE | 2019-04-24 19:47 | NUR ---
3269 FAMILY PRESENT TO ASSIST WITH MEAL APPETITE GOOD
--- NOTE | 2019-04-24 19:48 | NUR ---
1800 RESTING QUIETLY AFTER GIVEN NORCO 7.5 MG FOR PAIN 05/21
--- NOTE | 2019-04-24 20:03 | NUR ---
DR. TANG CALLED WITH REPEAT H AND H RESULTS. NEW ORDER GIVEN FOR ONE UNIT OF PRBC
--- NOTE | 2019-04-24 21:45 | NUR ---
PRBC STARTED AT THIS TIME SEE BLOOD ADMINISTRATION FLOWSHEET
--- NOTE | 2019-04-24 23:00 | NUR ---
PT RESTING WITH EYES CLOSED, PT AWAKES TO NAME. RESP EVEN NON LABORED. NO DISTRESS NOTED AT THIS TIME
[2019-04-25] VITALS (22 sets, daily range): BP systolic 73–125; BP diastolic 26–72
--- NOTE | 2019-04-25 01:00 | NUR ---
PT RESTING WITH EYES CLOSED, RESP EVEN NONLABORED, NO DISTRESS NOTED AT THIS TIME
--- NOTE | 2019-04-25 01:44 | NUR ---
LINDA COMPLETED AT THIS TIME. PT ADVISED THAT SHE HAQVING NO PROBLEMS.
[2019-04-25 05:26] LABS: BASOPHILS 0.1 % (0-2); EOSINOPHILS 1.8 % (0-7); HEMATOCRIT 24.6 % (36.0-48.0); HEMOGLOBIN 8.3 g/dL (12-16); IMMATURE GRANULOCYTES 1.6 % (0-5); LYMPHOCYTES 6.4 % (15-50); MCH 29.3 pg (26.0-34.0); MCHC 33.7 g/dL (31.0-37.0); MEAN PLATELET VOLUME 9.6 fL (7.4-10.4); MONOCYTES 5.5 % (2-11); NEUTROPHILS 84.6 % (40-80); PLATELET COUNT 184 10x3/uL (130-400); RBC 2.83 10x6/uL (4.00-5.40); RDW 16.7 % (11.5-14.5); WBC 17.2 10x3/uL (4.8-10.8)
[2019-04-25 05:27] LABS: MCV 86.9 fL (80.0-100.0)
[2019-04-25 05:46] LABS: ALBUMIN 1.3 g/dL (3.4-5.0); BILIRUBIN - TOTAL 0.6 mg/dL (0.2-1.3); CALCIUM 8.6 mg/dL (8.5-10.1); PHOSPHOROUS 6.5 mg/dL (2.5-4.9); POTASSIUM - SERUM 4.5 mmol/L (3.5-5.1); PROTEIN - SERUM 5.7 g/dL (6.4-8.2)
[2019-04-25 05:47] LABS: ANION GAP 16.3 mmol/L (8-16); CARBON DIOXIDE 24.2 mmol/L (21.0-32.0)
--- NOTE | 2019-04-25 07:00 | NUR ---
SHIFT ASSESSMENT COMPLETED. PT CARE ASSUMED. MONITORS ON AND WORKING, VITALS STABLE. PT AWAKE AND ALERT, CALL LIGHT WITHIN REACH, SEE FLOW SHEET FOR FURTHER DETAILS. WILL CONTINUE TO OBSERVE.
--- NOTE | 2019-04-25 09:00 | NUR ---
PT TURNED AND REPOSITIONED FOR COMFORT. PAIN MEDS GIVEN PER PTS REQUEST, MONITROS ON AND WORKING, PT NPO FOR DRESSING CHANGE IN OR THIS MORNING, CONSENTS OBTAINED AND IN CHART, CALL LIGHT WITHIN REACH, WILL CONTINUE TO OBSERVE.
--- NOTE | 2019-04-25 11:00 | NUR ---
NO CHANGES. PT AWAKE AND ALERT, MONITORS ON AND WORKING, VITALS STABLE. PT BACK FROM OR. WOUND VAC IN PLACE. PAIN MEDS GIVEN PER PT REQUEST. SEE FLOW SHEET FOR FURTHER DETIALS, WILL CONTINUE TO OBSERVE.
--- NOTE | 2019-04-25 11:00 | NUR ---
Nutrition follow-up: Pt NPO for wound dressing change PO intake of full liquid diet has been ~50% of last 3 meals Pt is drinking Glucerna per nursing labs reviewed Wt: 270# RDN following.
--- NOTE | 2019-04-25 13:00 | NUR ---
PT TURNED AND REPOSITIONED FOR COMFORT, NO SIGNS/SYMPTOMS OF PAIN OR DISCOMFORT NOTED. WILL CONTINUE TO OBSERVE.
--- NOTE | 2019-04-25 13:58 | OP ---
PATIENT NAME: NELSON SCANLON MEDICAL RECORD: [id number] :57 LOCATION:[facility] D.2306 ADMISSION DATE:04/13/19 SURGEON: RENE MARR MD DATE OF OPERATION: 04/25/2019 REFERRING PHYSICIAN: Antionette Tang MD OPERATION PERFORMED: Wound VAC dressing change under anesthesia. RADIAL SAW OPERATOR: Rai Garza MD, with general anesthesia by LMA. PREOPERATIVE NOTE: Ms. Scanlon is to be returned to the operating room today for her first wound VAC dressing change. Because of the magnitude of her wound and the VAC dressing, I opted to do this at least this one time in the operating room under some anesthetic. Under general anesthesia with LMA by Dr. Garza, the patient was in supine position. He was prepped and draped in sterile manner. The wound VAC dressing and the CVL dressing in the left groin were removed. The wound surrounding tissues were scrubbed with Betadine. The wound was further cleansed with hydrogen peroxide and irrigated with Ancef and gentamicin solution. Moderate amount of clot and fibrinous exudate were removed. There was really no large amount or significant amount of necrotic tissue present today. There was beginning of some granulation tissue scattered about. The skin at the margins of the wound was improved since the last time I had seen it. It was not moist, oozing, or wet as it had been. This made it much easier to get the wound VAC plastic dressing to adhere. I took a single large wound VAC black sponge and cut it in half and placed this end-to-end horizontally within the wound, resting on top of the rectus fascia. I then approximated the skin over it with 2 interrupted simple #0 Vicryl sutures. This made it much easier to apply the plastic dressing. The surrounding skin was painted with Cavilon and plastic dressing applied. The wound VAC was hooked up at negative 125 mmHg continuous suction. I used an irrigating-type dressing and plan to irrigate with Dakin's solution periodically, at first 50 cc every hour with a 10-minute dwell. The patient was then awakened, and in stable condition, then returned to the ICU. There was no blood lost during the procedure. No drain was used. No surgical specimen was submitted for histopathology. All sponges, instruments, and needles were accounted for. TRANSINT:[id number] Voice Confirmation ID: [id number] DOCUMENT ID: [id number] OPERATIVE REPORT [id number] NELSON SCANLON JAMES MD at 1358 CC: ANTIONETTE TANG MD [id number] DICTATION DATE: 04/25/19 1316 HOUSING COORDINATOR: 04/25/19 1352 ADM IN [facility] [address] [place] [address]
--- NOTE | 2019-04-25 13:58 | OP ---
PATIENT NAME: NELSON SCANLON MEDICAL RECORD: [id number] :57 LOCATION:[facility] D.2306 ADMISSION DATE:04/13/19 SURGEON: RENE MARR MD DATE OF OPERATION: 04/22/2019 PREOPERATIVE DIAGNOSIS: Gangrenous panniculitis and dialysis catheter dysfunction also end-stage renal disease on dialysis and dependence on dialysis. OPERATION PERFORMED: HemoSplit tunneled dialysis catheter exchange under fluoroscopy replacing the existing dysfunctional HemoSplit with a 42 cm long HemoSplit well up into the inferior vena cava and then also excisional wound debridement completing panniculectomy and application of wound VAC dressing. SURGEON: Rene Marr MD ANESTHESIA: General with LMA per LAWN SERVICE WORKER. PREOPERATIVE NOTE: Ms. Scanlon is an unfortunate 64-year-old -[place] female with end-stage renal disease on chronic hemodialysis. She is morbidly obese and recently has suffered a severe deterioration in her health status. She presented to our hospital with a gangrenous abdominal panniculus and other areas of skin and soft tissue pressure necrosis also a gangrenous left foot. She was taken to the operating room earlier and underwent a partial panniculectomy and insertion of a HemoSplit catheter via the left common femoral vein. Her left arm AV graft having thrombosed. Catheter is not functioning well and she is returned to the operating room to replace it and also to perform a dressing change and debridement is needed. DESCRIPTION OF PROCEDURE: Under anesthesia in supine position, the patient was prepped and draped in sterile manner. The existing HemoSplit was removed over an Amplatz wire and a dilator peel-away sheath inserted then over the wire under fluoroscopy and lastly a 42 cm HemoSplit catheter was inserted over that same wire and the tip of the catheter reaching well up into the inferior vena cava. Both lumens were accessed and aspirated, free return of blood confirmed. They were then flushed with saline and heparin locked, clamped, and capped. A catheter was sutured to the skin at the entry site with 2-0 Prolene. Sterile dressings were applied. We then cleaned and debrided the areas of necrotic skin and clot from the anterior abdominal wall and anterior thighs and pubic area. We used hydrogen peroxide and gauze sponges for this portion of the procedure. I removed the gauze packing from the large open wound and irrigated that wound. There was no further gross necrosis, but there is still large apron of skin and fat remaining which only complicated wound dressing application. So I completed the amputation of the panniculus. That tissue was not sent for pathology. Hemostasis was obtained with 3-0 Vicryl ties and electrocautery. The wound was then filled with black foam. Actually, I cut one large black foam piece into 1/2 and placed both halves end-to-end sideways into the wound and then was able to approximate the wound over this with a Cavilon and plastic adhesive dressings. The vacuum was applied and a good seal at least initially obtained. The patient was awakened and taken to the recovery room. Blood loss during the operation 25 cc. None was replaced intraoperatively. The patient is to go back to ICU today and continue her supportive care there. OPERATIVE REPORT [id number] BEATRICE SCANLONROSALIO Tompkins She will now be scheduled to return to the operating room on Thursday morning for dressing change. I think it is necessary to do this just because of the size of the wound. I do not plan anesthesia, but only MAC for the next trip to the OR. TRANSINT:[id number] Voice Confirmation ID: [id number] DOCUMENT ID: [id number] RENE MARR MD at 1358 CC: ANTIONETTE TANG MD [id number] DICTATION DATE: 04/22/19 1635 EXTENSION WORKER: 04/22/19 215 ADM IN [facility] [address] [place] [address]
--- NOTE | 2019-04-25 15:00 | NUR ---
NO CHNAGES, SEE FLOW SHEET FOR FURTHER DETAILS. CALL LIGHT WITHIN REACH, WILL CONTINUE TO OBSERVE.
--- NOTE | 2019-04-25 17:00 | NUR ---
PT RESTING CALMLY, MONITORS ON AND WORKING, VITALS STABLE. WILL CONTINUE TO OBSERVE.
--- NOTE | 2019-04-25 18:38 | EC ---
PATIENT:NELSON GARDNER DATE OF SERVICE: 04/13/19 SEX: F MEDICAL RECORD: [id number] DATE OF : 57 LOCATION:[facility] D230 AGE OF PATIENT: 64 ADMISSION DATE: 04/13/19 REFERRING PHYSICIAN: INTERPRETING PHYSICIAN: JOLANTA BRICENO MD ECHOCARDIOGRAM REPORT ECHO CHARGES 4 ECHO COMPLETE Date: 04/13/19 CLINICAL DIAGNOSIS: ELEVATED TROPONIN ECHOCARDIOGRAPHIC MEASUREMENTS (adult normal given) AC root (d.<3.7cm) 3.2 cm LV Septum d (<1.2 cm> 1.2 cm Valve Excursion 1.6 cm LV Septum (systole) 1.5 cm Left Atria (s.<4.0cm> 4.2 cm LVPW d(<1.2cm) 0.7 cm RV (d.<2.3cm) 3.0 cm LVPW (sytole) 1.2 cm LV diastole(<5.6CM) 4.9 cm MV E-F(>70mm/sec) cm LV systole 3.9 cm LVOT Diameter 2.0 cm MV exc.(>10mm) cm Est.ejection fraction (50-75%) % DOPPLER: LVIT cm/sec A 104 cm/sec E 53.0 cm/sec LA cm/sec RVSP 17.3 mmHg LVOT 97.0 cm/sec AOP1/2T m/s Asc. Ao 118 cm/sec RVOT 112 cm/sec RA cm/sec PA 116 cm/sec AV Gradient Peak 5.6 mmHg AV Mean 2.6 mmHg AV Area 2.9 cm MV Gradient Peak 7.1 mmHg MV Mean 2.7 mmHg MV Area cm COMMENTS: [employer] Professor: Jeffery AVINAOE Director Of Professional Services: 1 Dr. Briceno TAPE# PACS Pericardial Effusion N DATE OF SERVICE: 04/13/2019 FINDINGS: 1. Left ventricular chamber size is within normal limits. Left ventricular systolic function is normal. Overall ejection fraction is estimated at 55%. 2. Left atrium is enlarged at 4.2 cm. Right atrium and right ventricular chamber sizes are as well mildly dilated. 3. Valvular structures have normal structure and motion. 4. Doppler interrogation reveals no significant valvular insufficiency or stenosis. Pulmonary systolic pressure is estimated at 70 mmHg. ECHOCARDIOGRAM REPORT [id number] NELSON GARDNER 5. No evidence of pericardial effusion or left ventricular thrombus. TRANSINT:[id number] Voice Confirmation ID: [id number] DOCUMENT ID: [id number] JOLANTA BRICENO MD at 1838 CC: [id number] DICTATION DATE: 04/13/191733 MANAGER ENERGY: 04/13/191914 ADM IN [facility] [address] [place] [id number]
--- NOTE | 2019-04-25 18:38 | CN ---
PATIENT NAME:NELSON SCANLON MEDICAL RECORD: [id number] : 57 LOCATION:[facility]6 ADMIT DATE: 04/13/19 ACCOUNT: [id number] CONSULTING PHYSICIAN: JOLANTA TAMEZ MD REFERRING PHYSICIAN: ANTIONETTE TANG MD DATE OF CONSULTATION: 04/14/2019 CARDIOLOGY CONSULT DIAGNOSES: 1. Elevated troponin. 2. Non-Q-wave myocardial infarction. 3. Abnormal ECG. 4. Hypertension. 5. End-stage renal failure, on dialysis. 6. Peripheral vascular disease. HISTORY OF PRESENT ILLNESS: Mrs. Scanlon presented with a clotted dialysis graft and inability to dialyze. Her creatinine was 18. She was noted to have an elevated troponin. She is not having any chest pain or chest discomfort; however, EKG does have ST-T abnormalities throughout the anterior leads. She is quite tachycardic; however, her systolic blood pressure is in the 80s. She was previously on Lopressor 12.5 mg b.i.d. This has been given despite the hypotension. She has got her graft declotted and is now on Eliquis. PHYSICAL EXAMINATION: GENERAL APPEARANCE: Well-nourished, well-developed, appears stated age. Level of distress, comfortable. PSYCHIATRIC: Mental status, alert, normal affect. Orientation, oriented to time, place and person. EYES: Lids and conjunctiva, noninjected. No discharge, no pallor. ENT: Lips, teeth, gums, normal dentition. Oropharynx, no cyanosis, no pallor. NECK: Carotid arteries, bilateral normal upstroke, no bruits, no thrills. JUGULAR VEINS: No jugular venous pressure or distention. CERVICAL LYMPH NODES: Nontender, nonenlarged. THYROID: Not enlarged. Nontender. No nodules. LUNGS: Respiratory effort, unlabored. CHEST: Normal curvature. No thoracic deformity. No chest wall tenderness. Percussion, resonant. Auscultation, clear. No wheezes, no rales, no rhonchi. CARDIOVASCULAR: Precordial exam, nondisplaced. No heaves or pericardial thrills. Rate and rhythm, regular. Heart sounds, normal S1, normal S2. No S3, no gallop, no rub. Systolic murmur, not heard. Diastolic murmur, not heard. EXTREMITIES: No cyanosis, no edema. Peripheral pulses, full and equal in all extremities, except as noted. No bruits appreciated. ABDOMEN: Soft, nondistended. Normal aorta. No bruit. Nontender. No masses. Liver, nontender, no hepatomegaly. Spleen, nontender, no splenomegaly. MUSCULOSKELETAL: No joint tenderness. No joint swelling. No erythema. NEUROLOGICAL: Normal gait, normal strength, normal tone. SKIN: Warm and dry. OVERALL IMPRESSION: Elevated troponin, most likely secondary to demand ischemia. At this time, cannot increase her beta-rajan secondary to her hypotension. Hopefully, with dialysis, her heart rate will come down. Her only cardiac workup will be an echocardiogram for assessment of her overall LV function. CONSULT REPORT [id number] NELSON SCANLON TRANSINT:[id number] Voice Confirmation ID: [id number] DOCUMENT ID: [id number] JOLANTA TAMEZ MD at 1838 CC: [id number] DICTATION DATE: 04/14/19 1012 OFFLINE CUTTER: 04/14/19 1358 ADM IN [place] [address] [place] [id number]
--- NOTE | 2019-04-25 19:30 | NUR ---
PT RESTING QUIETLY. EYES CLOSED BUT OPENS THEM AND RESPONDS WHEN SPOKEN TO. DENIES NEEDS AT THIS TIME. BED IN LOW SIDE RAILS X3. RESP EVEN AND UNLABORED. O2 ON 2L VIA NC. NO DISTRESS NOTED. CL IN REACH. WILL CONTINUE TO MONITOR.
--- NOTE | 2019-04-25 22:12 | NUR ---
PT RESTING QUIETLY. CL IN REACH. NO DISTRESS NOTED. RESP EVEN AND UNLABORED. WCTM
--- NOTE | 2019-04-25 23:57 | NUR ---
PT WAS PLACED ON LEVOPHED DUE TO MAP BEING BELOW 60 FOR OVER AN HOUR AND SBP BELOW 90. VITALS SINCE THEN HAVE BEEN MUCH BETTER BP OF NOW IS 105/61, MAP 70, PULSE 80. DENIES NEEDS WCTM
[2019-04-26] VITALS (95 sets, daily range): BP systolic 48–119; BP diastolic 21–70
--- NOTE | 2019-04-26 02:20 | NUR ---
PT RESTING QUIETLY. TURNED PT ON LEFT SIDE. NO DISTRESS NOTED. BED IN LOW RESP EVEN AND UNLABORED. WCTM CL IN REACH
--- NOTE | 2019-04-26 04:02 | NUR ---
PT RESTING QUIETLY. CL IN REACH. NO DISTRESS NOTED. WCTM
[2019-04-26 05:27] LABS: HEMATOCRIT 28.9 % (36.0-48.0); HEMOGLOBIN 9.6 g/dL (12-16); MCH 29.3 pg (26.0-34.0); MCHC 33.2 g/dL (31.0-37.0); MCV 88.1 fL (80.0-100.0); PLATELET COUNT 216 10x3/uL (130-400); RBC 3.28 10x6/uL (4.00-5.40); RDW 17.4 % (11.5-14.5); WBC 24.6 10x3/uL (4.8-10.8)
--- NOTE | 2019-04-26 05:45 | NUR ---
PT BATHED AFTER HE HAD A LARGE BM. BEDLINEN CHANGED. PT COUGHED AND HAD ANOTHER BM. BATHED AGAIN AND BED LINEN CHANGED. POSITIONED FOR COMFORT.
[2019-04-26 05:48] LABS: EOSINOPHILS 2 % (0-7); LYMPHOCYTES 3 % (15-50); MONOCYTES 7 % (2-11); NEUTROPHILS 88 % (40-80); PLATELET ESTIMATE NORMAL
--- NOTE | 2019-04-26 05:54 | NUR ---
PT RESTING QUIETLY. PAIN PILL GIVEN PER DEC. DENIES FURTHER NEEDS. CL IN REACH. WCTM
[2019-04-26 06:02] LABS: ALBUMIN 1.3 g/dL (3.4-5.0); BILIRUBIN - TOTAL 0.75 mg/dL (0.2-1.3); CREATININE - SERUM 8.7 mg/dL (0.6-1.3); POTASSIUM - SERUM 5.1 mmol/L (3.5-5.1); PROTEIN - SERUM 6.4 g/dL (6.4-8.2); VANCOMYCIN - RANDOM 23.8 ug/mL (10.0-20.0)
[2019-04-26 06:19] LABS: CARBON DIOXIDE 18.1 mmol/L (21.0-32.0)
--- NOTE | 2019-04-26 07:15 | NUR ---
REPORT RECEIVED. ASSESSMENT COMPLETE PER FLOW SHEET. VSS. PT RESTING COMFORTABLY WILL CONTINUE TO MONTIOR
--- NOTE | 2019-04-26 07:34 | NUR ---
I have reviewed this patient and I concur with the Shift Assessment completed by the Licensed Practical Nurse today this shift.
--- NOTE | 2019-04-26 09:40 | NUR ---
DIALYSIS AT BEDSIDE UPDATE GIVEN
--- NOTE | 2019-04-26 16:14 | NUR ---
0930 BP IS LABILE.. DIALYSIS NURSE SETTING UP FOR DIALYSIS.. 1000 DIALYSIS STARTED.. C/O PAIN BUPRENEX GIVEN.. 1040 BP REMAINS LABILE TITRATING LEVOPHED SEE FLOW SHEET.. DIALAYSIS NURSE STATES THAT THE DIALYSIS CATH IS NOT WORKING CORRECTLY.. SHE HAS CALLED AND ORDER FOR ACTIVASE RECIEVED.. 1100 DIALYSIS IS STOPPED AT THIS TIME.. 1200 FAMILY AT THE BEDSIDE AND UPDATE IS GIVEN.. 1245 DR MARR IN TO SEE PATIENT.. FULL LIQUID DIET IS ORDERED.. 1300 NEPRO GIVEN.. BS DONE NO INSULIN COVER 1400 BP MORE STABLE 1500 COMPLETE CHG BATH WITH LINEN CHANGES DONE PT TOLERATED WELL MEPLEX DRESSING APPLIED TO THE PTS COCCYX AREA FOR BROKEN SKIN AREA 1600 FAMILY BACK AT BEDSIDE..
--- NOTE | 2019-04-26 19:00 | NUR ---
PT RESTING IN BED WITH EYES CLOSED. PT AWAKES TO NAME AND FOLLOWS COMMANDS AND CONVERSATION. PT DENIES COPLAINTS AT THIS TIME.
--- NOTE | 2019-04-26 21:00 | NUR ---
PT RESTING WITH EYES CLOSED, RESP EVEN AND SHALLOW, NO ACUTE DISTRESS SEEN AT THIS TIME
--- NOTE | 2019-04-26 23:00 | NUR ---
PT RESTING WITH EYES CLOSED, RESP EVEN AND SHALLOW, NO DISTRESS NOTED AT THIS TIME
[2019-04-27] VITALS (101 sets, daily range): BP systolic 66–126; BP diastolic 21–96
--- NOTE | 2019-04-27 01:00 | NUR ---
PT RESTING WITH EYES CLOSED, RESP EVEN AND SHALLOW. NO DISTRESS NOTED AT THIS TIME
[2019-04-27 06:20] LABS: ALBUMIN 1.3 g/dL (3.4-5.0); ANION GAP 22.3 mmol/L (8-16); BILIRUBIN - TOTAL 0.68 mg/dL (0.2-1.3); CALCIUM 9.6 mg/dL (8.5-10.1); CARBON DIOXIDE 19.7 mmol/L (21.0-32.0); CREATININE - SERUM 9.1 mg/dL (0.6-1.3); PHOSPHOROUS 7.8 mg/dL (2.5-4.9); PROTEIN - SERUM 6.5 g/dL (6.4-8.2)
--- NOTE | 2019-04-27 07:00 | NUR ---
SHIFT ASSESSMENT COMPLETED. PT CARE ASSUMED. MONITORS ON AND WORKING, VITALS STABLE, PT AWAKE AND ALERT, SEE FLOW SHEET FOR FURTHER DETAILS. WILL CONTINUE TO OBSERVE.
[2019-04-27 07:13] LABS: BASOPHILS 0 % (0-2); EOSINOPHILS 0.7 % (0-7); HEMATOCRIT 28.2 % (36.0-48.0); HEMOGLOBIN 9.4 g/dL (12-16); IMMATURE GRANULOCYTES 1.3 % (0-5); LYMPHOCYTES 5.1 % (15-50); MCH 29.7 pg (26.0-34.0); MCHC 33.3 g/dL (31.0-37.0); MEAN PLATELET VOLUME 9.7 fL (7.4-10.4); MONOCYTES 6.6 % (2-11); NEUTROPHILS 86.3 % (40-80); PLATELET COUNT 214 10x3/uL (130-400); RBC 3.17 10x6/uL (4.00-5.40); RDW 17.6 % (11.5-14.5); WBC 24.1 10x3/uL (4.8-10.8)
--- NOTE | 2019-04-27 09:00 | NUR ---
PT SITTING UP IN BED EATING BREAKFAST, MONITORS ON AND WORKING, VITALS STABLE. FAMILY AT BEDSIDE. CALL LIGHT WITHIN REACH, WILL CONTINUE TO OBSERVE.
--- NOTE | 2019-04-27 11:00 | NUR ---
PT TURNED AND REPOSITIONED FOR COMFORT, MONITORS ON AND WORKING, VITALS STABLE, PT AWAKE AND ALERT, NO SIGNS/SYMPTOMS OF PAIN OR DISCOMFORT NOTED AT THIS TIME, CALL LIGHT WITHIN REACH, WILL CONTINUE TO OBSERVE.
--- NOTE | 2019-04-27 12:18 | NUR ---
Nutrition follow-up: Diet: ADA full liquids Pt is drinking some Nepro PO intake poor at this time; pt has been NPO on several occasions Wound VAC in place Labs reviewed WT: 269# RDN will order Nepro TID Following.
--- NOTE | 2019-04-27 13:12 | NUR ---
PT SLEEPING COMFORTALBY VSS NO NEW CHANGES WILL CONTINUE TO MONITOR
--- NOTE | 2019-04-27 15:00 | NUR ---
REASSESSMENT COMPLETE PER FLOW SHEET. VSS. NO NEW CHANGES PT RESTING COMFORTABLY
--- NOTE | 2019-04-27 17:49 | MORECARE ---
CASE MANAGEMENT DISCHARGE SUMMARY PATIENT: NELSON GARDENR UNIT: [id number] ADM DATE: 04/13/19 AGE: 64 : 57 SEX: F ROOM/BED: D.2306 AUTHOR: YAO,DOC PHYSICIAN: REFERRING PHYSICIAN: ANTIONETTE TANG MD DATE OF SERVICE: 04/27/19 Discharge Plan Patient Name: NELSON GARDNER Facility: [facility]:[place] : 1955 Planned Disposition: Home Anticipated Discharge Date: Discharge Date: Expected LOS: Initial Reviewer: [email or web address] Initial Review Date: 04/13/2019 Generated: 04/27/19 6:49 pm Comments DCP- Discharge Planning Updated by [email or web address]: Gwen Dukes on 04/27/19 4:[address] Handley spoke with CM with regards to discharge planning. He stated that CM should look for LTACH facility near [facility]. CM will continue to follow and assist as needed with discharge planning / needs. DCP- Discharge Planning Updated by [email or web address]: Gwen Dukes on 04/13/19 3:[address] Patient Name: NELSON GARDNER Admission Status: ER Accout number: [id number] Admission Date: 04-13-2019 : 1955 Admission Diagnosis: Attending: ANTIONETTE TANG Current LOS: 1 Anticipated DC Date: Planned Disposition: Home Primary Insurance: MEDICARE A & B Discharge Planning Comments: CM met with patient and sister Brian Puri [phone] at bedside after explaining CM role and obtaining verbal consent. Patient lives at home with her mother, daughter, and grand-daughter and plans to return there upon discharge. Patient feels this would be a safe discharge. CM discussed availability / needs of home health and medical equipment. Patient has hemodialysis [facility] in [place] @ 7am. Patient has a walker, cane and CPAP @ home. Patient denies any discharge needs at this time. Patient states she will have family drive her home upon discharge. CM will continue to follow and assist as needed with discharge planning / needs. Bryologist: Gwen Dukes DCPIA - Discharge Planning Initial Assessment Updated by [email or web address]: Gwen Dukes on 04/13/19 4:32 pm * Is the patient Alert and Oriented? Yes * How many steps to enter\exit or inside your home? * PCP MARIA E * [facility]acy [facility] * Preadmission Environment Home with Family * ADLs Independent * Other Equipment CANE, WALKER, CPAP * List name and contact numbers for known caregivers / representatives who currently or will assist patient after discharge: BRIAN PURI - SISTER- [phone] MARIA ESTHER GARDNER - DAUGHTER- [phone] OR [phone] * Verbal permission to speak to the caregivers and representatives has been obtained from the patient. Yes * Community resources currently utilized None * Additional services required to return to the preadmission environment? No * Can the patient safely return to the preadmission environment? Yes * Has this patient been hospitalized within the prior 30 days at any hospital? No Last DP export: 04/13/19 3:39 pm Patient Name: NELSON GARDNER Page [id number] at 1749 All edits/amendments must be made on the electronic document DICTATION DATE: 04/27/191748 PACKAGE SEALER MACHINE: PASTOR 04/27/191748 RPT#: [id number] DC DATE: STATUS: ADM IN [facility] [address] [place] [address] END OF REPORT
--- NOTE | 2019-04-27 19:00 | NUR ---
PT YELLING OUT AND C/O PAIN. PT REQUESTING TO BE TURNED OFF HER SIDE. PT WAS ASSISTED ON HER BACK. PT ADVISED THAT SHE FELT MUCH BETTER.
--- NOTE | 2019-04-27 20:04 | NUR ---
PATIENT REPORT CALLED TO RICHA BEYER ON MED 3. PT TO BE TRANSFERRED TO THE FLOOR VIA W/C
--- NOTE | 2019-04-27 20:55 | NUR ---
PT REQUESTING SOMETHING FOR PAIN, MEDICATION GIVEN AT THIS TIME. PT REPOSITIONED ALSO
--- NOTE | 2019-04-27 21:20 | NUR ---
PT ADVISED THAT HER PAIN WAS MUCH BETTER AT THIS TIME
--- NOTE | 2019-04-27 23:00 | NUR ---
PT RESTING WITH EYES CLOSED, AWAKES TO NAME. PT STATES THAT SHE IS FEELING MUCH BETTER AT THIS TIME, DENIES ANY COMPLAINTS AT PRESENT
[2019-04-28] VITALS (93 sets, daily range): BP systolic 54–119; BP diastolic 22–96
--- NOTE | 2019-04-28 01:00 | NUR ---
PT RESTING WITH EYES CLOSED RESP EVEN NONLABORED, NO DISTRESS NOTED AT THIS TIME
--- NOTE | 2019-04-28 03:00 | NUR ---
PT REQUESTING TO BE TURNED ON HER BACK, PT WAS REPOSTITIONED AT THIS TIME
--- NOTE | 2019-04-28 05:00 | NUR ---
PT C/O PAIN REQUESTING SOME THING FOR PAIN. PAIN MEDICINE GIVEN
[2019-04-28 05:17] LABS: HEMATOCRIT 27.7 % (36.0-48.0); HEMOGLOBIN 9.2 g/dL (12-16); MCH 29.5 pg (26.0-34.0); MCHC 33.2 g/dL (31.0-37.0); MCV 88.8 fL (80.0-100.0); MEAN PLATELET VOLUME 9.2 fL (7.4-10.4); PLATELET COUNT 175 10x3/uL (130-400); RBC 3.12 10x6/uL (4.00-5.40); RDW 17.6 % (11.5-14.5); WBC 24.4 10x3/uL (4.8-10.8)
[2019-04-28 05:20] LABS: ALBUMIN 1.1 g/dL (3.4-5.0); ANION GAP 18.9 mmol/L (8-16); BILIRUBIN - TOTAL 0.55 mg/dL (0.2-1.3); CALCIUM 8.8 mg/dL (8.5-10.1); CARBON DIOXIDE 21.8 mmol/L (21.0-32.0); CREATININE - SERUM 9.8 mg/dL (0.6-1.3); POTASSIUM - SERUM 4.7 mmol/L (3.5-5.1); PROTEIN - SERUM 6.2 g/dL (6.4-8.2)
[2019-04-28 05:59] LABS: EOSINOPHILS 1 % (0-7); LYMPHOCYTES 6 % (15-50); MONOCYTES 4 % (2-11); NEUTROPHILS 87 % (40-80); PLATELET ESTIMATE DECREASED
--- NOTE | 2019-04-28 07:00 | NUR ---
SHIFT ASSESSMENT COMPLETED, PT CARE ASSUMED. MONITORS ON AND WORKING, VITALS STABLE. NO SIGNS/SYMPTOMS OF PAIN OR DISCOMFORT NOTED AT THIS TIME, CALL LIGHT WITHIN REACH, SEE FLOW SHEET FOR FURTHER DETAILS. WILL CONTINUE TO OBSERVE.
--- NOTE | 2019-04-28 09:00 | NUR ---
PT TURNED AND REPOSITIONED, ORAL CARE DONE AT THIS TIME. MONITORS ON AND WORKING, VITALS STABLE. CALL LIGHT WITHIN REACH, WILL CONTINUE TO OBSERVE.
--- NOTE | 2019-04-28 11:00 | NUR ---
NO CHANGES, SEE FLOW SHEET FOR FURTHER DETAILS. MONITORS ON AND WORKING, CALL LIGHT WITHIN REACH, WILL CONTINUE TO OBSRVE.
--- NOTE | 2019-04-28 13:00 | NUR ---
PT TURNED AND REPOSITIONED FOR COMFORT, NO SIGNS/SYMPTOMS OF PAIN OR DISCOMFORT NOTED AT THIS TIME. WILL CONTINUE TO OBSERVE.
--- NOTE | 2019-04-28 15:00 | NUR ---
NO CHANGES, SEE FLOW SHEET FOR FURTHER DETAILS. MONITORS ON AND WORKING, CALL LIGHT WITHIN REACH. WILL CONTINUE TO OBSERVE.
--- NOTE | 2019-04-28 17:00 | NUR ---
PT TURNED AND REPOSITIONED FOR COMFORT, MEPILEX ON BOTTOM CHANGED, PT CLEANED FROM SMALL BM, LINEN CHANGE DONE AT THIS TIME WELL. MONITORS ON AND WORKING, CALL LIGHT WITHIN REACH, WILL CONTINUE TO OBSERVE.
--- NOTE | 2019-04-28 19:47 | NUR ---
PT RECEIVED WITH EYES OPEN. COMPLAINS OF PAIN WITH PRN PAIN MEDICATION GIVEN. PT ALERT. NO OTHER NEEDS MADE KNOWN. WILL CONTINUE TO OBSERVE.
--- NOTE | 2019-04-28 22:17 | NUR ---
HS MEDICATIONS GIVEN PER MAR. NO DIFFICULTY NOTED. ASSISTED TO BEDPAN WITH 400ML CLEAR YELLOW URINE NOTED. NO COMPLAINTS OF PAIN. CALL LIGHT IN REACH. WILL CONTINUE TO OBSERVE
--- NOTE | 2019-04-28 22:18 | NUR ---
HS MEDICATIONS GIVEN PER MAR. COMPLAINS OF PAIN WITH PRN PAIN MEDICATION GIVEN. NO OTHER NEEDS MADE KNOWN. SISTER WAS IN FOR VISIT AND HAS LEFT. CALL LIGHT IN REACH. WILL CONTINUE TO OBSERVE.
--- NOTE | 2019-04-28 23:39 | NUR ---
REASSESSMENT COMPLETED, SEE FLOW SHEET. CALL LIGHT IN REACH. WILL CONTINUE TO OBSERVE.
[2019-04-29] VITALS (82 sets, daily range): BP systolic 55–129; BP diastolic 20–94
--- NOTE | 2019-04-29 02:26 | NUR ---
PT AWAKE WATCHING TV. COMPLAINS OF PAIN WITH PRN PAIN MEDICATION GIVEN PER MAR. WILL CONTINUE TO OBSERVE.
[2019-04-29 04:24] LABS: BASOPHILS 0 % (0-2); EOSINOPHILS 0.6 % (0-7); HEMATOCRIT 26.4 % (36.0-48.0); HEMOGLOBIN 8.7 g/dL (12-16); IMMATURE GRANULOCYTES 0.7 % (0-5); LYMPHOCYTES 3.9 % (15-50); MCH 29.5 pg (26.0-34.0); MCV 89.5 fL (80.0-100.0); MEAN PLATELET VOLUME 9.9 fL (7.4-10.4); MONOCYTES 3.7 % (2-11); NEUTROPHILS 91.1 % (40-80); PLATELET COUNT 161 10x3/uL (130-400); RBC 2.95 10x6/uL (4.00-5.40); RDW 17.7 % (11.5-14.5); WBC 21.5 10x3/uL (4.8-10.8)
[2019-04-29 04:46] LABS: ALBUMIN 1.4 g/dL (3.4-5.0); ANION GAP 22.9 mmol/L (8-16); BILIRUBIN - TOTAL 0.59 mg/dL (0.2-1.3); CALCIUM 8.9 mg/dL (8.5-10.1); CARBON DIOXIDE 19.1 mmol/L (21.0-32.0); CREATININE - SERUM 10.2 mg/dL (0.6-1.3); PHOSPHOROUS 8.5 mg/dL (2.5-4.9); PROTEIN - SERUM 6.3 g/dL (6.4-8.2)
--- NOTE | 2019-04-29 08:19 | NUR ---
0715-PT TO OR AT THIS LOWY-NNHBC-W/O GENERALIZED PAIN TO TOUCH-DRIVERS' CASH CLERK AT BEDSIDE-SR ON MONITOR
--- NOTE | 2019-04-29 09:04 | NUR ---
Pt has numerous areas of skin breakdown. She has been on an air overlay mattress but turning/repositioning/personal care/wound care is so painful for her, we have ordered a speciality bed which will be delivered today. She has a surgical wound lower abdomen (paniculectomy) inwhich a wound vac dressing is applied. This is being changed in OR due to extreme pain. Left hip/thigh has area of ruptured blisters. This area is being painted with betadine daily and left open to air. Left dorsal foot (including toes) is black, dry necrotic skin. Left heel is necrotic. Both areas are being painted with betadine and covered with 4x4s saturated with betadine, covered with dry 4x4s and secured with kerlix. Right foot all toes are dry and discolored. This is being painted with betadine and wrapped with kerlix. Upper inner thighs - skin is peeling/excoriated. Perineal area is edematous and red. 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 Mepilex sacral is being applied. Right flank has open/ruptured blister measuring 5cm x 4cm (on a skin fold) Mepilex is being applied. Bilateral gluteal folds have peeling excoriated skin. Wound care continues to monitor.
--- NOTE | 2019-04-29 09:29 | NUR ---
Nutrition follow-up: Diet: NPO today for surgery PO intake of renal full liquid diet has been poor Labs reviewed Wt: 276# Recommend NGT vs PEG tube placed and nutrition support started. RDN following.
--- NOTE | 2019-04-29 09:48 | NUR ---
LEVOPED GOING @15CC ON ADMIT AND NORMAL SALINE INCREASED FROM 20CC TO 100 TO PUSH MED IN
--- NOTE | 2019-04-29 18:33 | MORECARE ---
CASE MANAGEMENT DISCHARGE SUMMARY PATIENT: NELSON GARDNER UNIT: [id number] ADM DATE: 04/13/19 AGE: 64 : 57 SEX: F ROOM/BED: D.2306 AUTHOR: YAO,DOC PHYSICIAN: REFERRING PHYSICIAN: ANTIONETTE TANG MD DATE OF SERVICE: 04/29/19 Discharge Plan Patient Name: NELSON GARDNER Facility: [facility]:[place] : 1955 Planned Disposition: Home Anticipated Discharge Date: Discharge Date: Expected LOS: Initial Reviewer: [email or web address] Initial Review Date: 04/13/2019 Generated: 04/29/19 7:32 pm Comments DCP- Discharge Planning Updated by [email or web address]: Gwen Dukes on 04/29/19 5:[address] CM spoke with Dr. Handley regarding LTACH facilities near [place]. CM explained that the closest facility is in [place], [place] or in [place]. then the next closest will be [place]. Patient at this time is requiring to go to surgery for dressing changes d/t pain involved. Surgeon is planning on taking patient to OR next week to try to declot AVG. CM will continue to follow and assist as needed with discharge planning / needs. DCP- Discharge Planning Updated by [email or web address]: Gwen Dukes on 04/27/19 4:[address] Handley spoke with CM with regards to discharge planning. He stated that CM should look for LTACH facility near [facility]. CM will continue to follow and assist as needed with discharge planning / needs. DCP- Discharge Planning Updated by [email or web address]: Gwen Dukes on 04/13/19 3:[address] Patient Name: NELSON GARDNER Admission Status: ER Accout number: [id number] Admission Date: 04-13-2019 : 1955 Admission Diagnosis: Attending: ANTIONETTE TANG Current LOS: 1 Anticipated DC Date: Planned Disposition: Home Primary Insurance: MEDICARE A & B Discharge Planning Comments: CM met with patient and sister Brian Puri [phone] at bedside after explaining CM role and obtaining verbal consent. Patient lives at home with her mother, daughter, and grand-daughter and plans to return there upon discharge. Patient feels this would be a safe discharge. CM discussed availability / needs of home health and medical equipment. Patient has hemodialysis [facility] in [place] @ 7am. Patient has a walker, cane and CPAP @ home. Patient denies any discharge needs at this time. Patient states she will have family drive her home upon discharge. CM will continue to follow and assist as needed with discharge planning / needs. Typewriter Tester: Gwen Dukes DCPIA - Discharge Planning Initial Assessment Updated by [email or web address]: Gwen Dukes on 04/13/19 4:32 pm * Is the patient Alert and Oriented? Yes * How many steps to enter\exit or inside your home? * PCP MARIA E * Pharmacy [facility] * Preadmission Environment Home with Family * ADLs Independent * Other Equipment CANE, WALKER, CPAP * List name and contact numbers for known caregivers / representatives who currently or will assist patient after discharge: BRIAN PURI - SISTER- [phone] MARIA ESTHER GARDNER - DAUGHTER- [phone] OR [phone] * Verbal permission to speak to the caregivers and representatives has been obtained from the patient. Yes * Community resources currently utilized None * Additional services required to return to the preadmission environment? No * Can the patient safely return to the preadmission environment? Yes * Has this patient been hospitalized within the prior 30 days at any hospital? No Last DP export: 04/27/19 4:49 p Patient Name: NELSON GARDNER Page [id number] at 1833 All edits/amendments must be made on the electronic document DICTATION DATE: 04/29/191831 CONSTRUCTION ADMINISTRATIVE ASSISTANT: PASTOR 04/29/191831 RPT#: [id number] DC DATE: STATUS: ADM IN [facility] [address] [place] [address] END OF REPORT
--- NOTE | 2019-04-29 19:45 | NUR ---
REPORT RECEIVED. INITIAL ASSESSMENT COMPLETE PT LYING WITH HEAD OF BED DOWN DUE TO HYPOTENSION ON 30 MCG OF LEVOPHED PER DAY SHIFT NURSE DR SOLIS HAD JUST GIVEN ORDER OF VASOPRESSIN. PT ALERT AND ORIENTED. ASKING TO EAT. . INFORMED PT THAT HER BP WAS NOT STABLE AT THIS TIME. FOLLOWS COMMANDS COMPLAINS OF PAIN ALL OVER WITH ANY POSITION CHANGE. PT IS ON BED WHICH REPOSITIONS TO RELEIVE PRESSURE. CM READING SR-ST WITH ALARMS ON AND AUDIBLE SEE ASSESSMENT FLOWSHEET.
--- NOTE | 2019-04-29 22:35 | NUR ---
PT C/O PAIN SEE EMAR
[2019-04-30] VITALS (39 sets, daily range): BP systolic 48–138; BP diastolic 21–98
--- NOTE | 2019-04-30 00:09 | NUR ---
DR SOLIS CALLED REGARDING CHANGE IN PT STATUS, ORDERS RECEIVED.
--- NOTE | 2019-04-30 02:15 | NUR ---
DR SOLIS NOTIFIED OF ABG AND PTS CURRENT STATUS WELL HER VERBALIZING THAT SHE WANTED TO BE A FULL CODE AND EVERYTHING TO BE DONE. SHE HAD REQUESTED HER SISTER BE CALLED WHICH HAD BEEN DONE SISTER ON WAY AND INFORMED PT THAT WOULD LET HER SEE SOON SHE ARRIVED
--- NOTE | 2019-04-30 02:30 | NUR ---
PTS SISTER AND BROTHER IN LAW AT BEDSIDE UPDATE GIVEN. PTS SISTER VERBALIZES UNDERSTANDING OF CRITICAL CONDITION
--- NOTE | 2019-04-30 03:00 | NUR ---
REASSESSMENT MADE PT BREATH SOUNDS CRACKLES
--- NOTE | 2019-04-30 05:00 | NUR ---
PT SISTER REMAINS AT BEDSIDE
--- NOTE | 2019-04-30 08:49 | NUR ---
WITH CONSENT FROM LORETO YATES FOR NEPHRO. LAB DRAWN FROM BLUE PORT OF HEMISPLIT IN CORPORATE DRIVER 10CC WITH DRAWN. LAB DRAWN. FLUSHED WITH 30 ML OF SALINE AND [address] IN LINE. FLUSHED WITHOUT DIFFICULTY.
[2019-04-30 09:08] LABS: HEMATOCRIT 27.2 % (36.0-48.0); HEMOGLOBIN 8.6 g/dL (12-16); MCH 29.2 pg (26.0-34.0); MCHC 31.6 g/dL (31.0-37.0); MCV 92.2 fL (80.0-100.0); MEAN PLATELET VOLUME 10.1 fL (7.4-10.4); PLATELET COUNT 216 10x3/uL (130-400); RBC 2.95 10x6/uL (4.00-5.40); RDW 18.2 % (11.5-14.5); WBC 25.4 10x3/uL (4.8-10.8)
[2019-04-30 09:12] LABS: ALBUMIN 1.8 g/dL (3.4-5.0); ANION GAP 28.9 mmol/L (8-16); BILIRUBIN - TOTAL 0.82 mg/dL (0.2-1.3); CALCIUM 9.7 mg/dL (8.5-10.1); CARBON DIOXIDE 18.1 mmol/L (21.0-32.0); CREATININE - SERUM 7.4 mg/dL (0.6-1.3); PROTEIN - SERUM 6.6 g/dL (6.4-8.2); VANCOMYCIN - RANDOM 21.1 ug/mL (10.0-20.0)
[2019-04-30 09:29] LABS: HYPOCHROMASIA 2+; LYMPHOCYTES 3 % (15-50); MONOCYTES 5 % (2-11); NEUTROPHILS 81 % (40-80); PLATELET ESTIMATE NORMAL
--- NOTE | 2019-04-30 09:50 | NUR ---
patient is stating to let her go. jose kurtz for nephro notified. patient repeated this statement to jose. sister at bedside. sister trying to notifiy family. liz called
--- NOTE | 2019-04-30 10:00 | NUR ---
MARKETING SALES SUPERVISOR HERE. TALKED WITH SISTER. PATIENT RESP RATE DROPPED AND PATIENT IS UNRESPONSIVE, BARELY BREATHING. SISTER AT BEDSIDE
--- NOTE | 2019-04-30 10:17 | NUR ---
PATIENT IS ASYSTOLE. SISTER AND REHABILITATION CONSULTANT AT BEDSIDE. LORETO YATES HERE. ER NOTIFIED TO JASMINA
--- NOTE | 2019-04-30 11:25 | NUR ---
DR. MARR NOTIFIED PATIENT BECOMING DNR AND EXPIRING.
--- NOTE | 2019-05-02 15:14 | MORECARE ---
CASE MANAGEMENT DISCHARGE SUMMARY PATIENT: NELSON GARDNER UNIT: [id number] ADM DATE: 04/13/19 AGE: 64 : 57 SEX: F ROOM/BED: D.2306 AUTHOR: YAO,DOC PHYSICIAN: REFERRING PHYSICIAN: ANTIONETTE TANG MD DATE OF SERVICE: 05/02/19 Discharge Plan Patient Name: NELSON GARDNER Facility: [facility]:[place] : 1955 Planned Disposition: Home Anticipated Discharge Date: Discharge Date: 04/30/2019 Expected LOS: Initial Reviewer: [email or web address] Initial Review Date: 04/13/2019 Generated: 05/02/19 4:13 pm Comments DCP- Discharge Planning Updated by [email or web address]: Gwen Dukes on 04/29/19 5:[address] CM spoke with Dr. Handley regarding LTACH facilities near [place]. CM explained that the closest facility is in [place], [place] or in [place]. then the next closest will be [place]. Patient at this time is requiring to go to surgery for dressing changes d/t pain involved. Surgeon is planning on taking patient to OR next week to try to declot AVG. CM will continue to follow and assist as needed with discharge planning / needs. DCP- Discharge Planning Updated by [id number]: Gwen Dukes on 04/27/19 4:[address] Handley spoke with CM with regards to discharge planning. He stated that CM should look for LTACH facility near [facility]. CM will continue to follow and assist as needed with discharge planning / needs. DCP- Discharge Planning Updated by [email or web address]: Gwen Dukes on 04/13/19 3:[address] Patient Name: NELSON GARDNER Admission Status: ER Accout number: [id number] Admission Date: 04-13-2019 : 1955 Admission Diagnosis: Attending: ANTIONETTE TANG Current LOS: 1 Anticipated DC Date: Planned Disposition: Home Primary Insurance: MEDICARE A & B Discharge Planning Comments: CM met with patient and sister Brian Puri [phone] at bedside after explaining CM role and obtaining verbal consent. Patient lives at home with her mother, daughter, and grand-daughter and plans to return there upon discharge. Patient feels this would be a safe discharge. CM discussed availability / needs of home health and medical equipment. Patient has hemodialysis [facility] in [place] @ 7am. Patient has a walker, cane and CPAP @ home. Patient denies any discharge needs at this time. Patient states she will have family drive her home upon discharge. CM will continue to follow and assist as needed with discharge planning / needs. Telemarketing Fundraiser: Gwen Dukes DCPIA - Discharge Planning Initial Assessment Updated by [email or web address]: Gwen Dukes on 04/13/19 4:32 pm * Is the patient Alert and Oriented? Yes * How many steps to enter\exit or inside your home? * PCP MARIA E * Pharmacy [facility] * Preadmission Environment Home with Family * ADLs Independent * Other Equipment CANE, WALKER, CPAP * List name and contact numbers for known caregivers / representatives who currently or will assist patient after discharge: BRIAN PURI - SISTER- [phone] MARIA ESTHER GARDNER - DAUGHTER- [phone] OR [phone] * Verbal permission to speak to the caregivers and representatives has been obtained from the patient. Yes * Community resources currently utilized None * Additional services required to return to the preadmission environment? No * Can the patient safely return to the preadmission environment? Yes * Has this patient been hospitalized within the prior 30 days at any hospital? No Last DP export: 04/29/19 5:33 p Patient Name: NELSON GARDNER Page [id number] at 1514 All edits/amendments must be made on the electronic document DICTATION DATE: 05/02/191512 MANAGER CORPORATE: PASTOR 05/02/191512 RPT#: [id number] DC DATE:04/30/19 STATUS: DIS IN [facility] [address] [place] [address] END OF REPORT
== END 2019-04-30 16:50 | DRG 853 ==
LOC: D.ER 10:48 → D.ICU 13:22
PROVIDERS: Family Medicine; Internal Medicine Nephrology; Surgery; ADMIT Internal Medicine Nephrology; ATTEND Internal Medicine Nephrology
PROC: 06HY33Z Insertion of Infusion Device into Lower Vein, Percutaneous Approach (ICD-10-PCS; principal; 2019-04-15)
PROC: 067D3ZZ Dilation of Left Common Iliac Vein, Percutaneous Approach (ICD-10-PCS; 2019-04-15)
PROC: 0WBF0ZZ Excision of Abdominal Wall, Open Approach (ICD-10-PCS; 2019-04-15)
PROC: 0HB7XZZ Excision of Abdomen Skin, External Approach (ICD-10-PCS; 2019-04-19)
PROC: 05CY3ZZ Extirpation of Matter from Upper Vein, Percutaneous Approach (ICD-10-PCS; 2019-04-19 12:00)
PROC: 0JPW3XZ Removal of Tunneled Vascular Access Device from Lower Extremity Subcutaneous Tissue and Fascia, Percutaneous Approach (ICD-10-PCS; 2019-04-22)
PROC: 0JHM3XZ Insertion of Tunneled Vascular Access Device into Left Upper Leg Subcutaneous Tissue and Fascia, Percutaneous Approach (ICD-10-PCS; 2019-04-22)
PROC: 06PY33Z Removal of Infusion Device from Lower Vein, Percutaneous Approach (ICD-10-PCS; 2019-04-22)
PROC: 06H033Z Insertion of Infusion Device into Inferior Vena Cava, Percutaneous Approach (ICD-10-PCS; 2019-04-22)
DX: A41.9 Sepsis, unspecified organism (principal); N18.6 End stage renal disease; I21.4 Non-ST elevation (NSTEMI) myocardial infarction; T82.868A Thrombosis due to vascular prosthetic devices, implants and grafts, initial encounter; I12.0 Hypertensive chronic kidney disease with stage 5 chronic kidney disease or end stage renal disease; I82.409 Acute embolism and thrombosis of unspecified deep veins of unspecified lower extremity; I96 Gangrene, not elsewhere classified; E87.2 Acidosis; E11.22 Type 2 diabetes mellitus with diabetic chronic kidney disease; Z99.2 Dependence on renal dialysis; W19.XXXA Unspecified fall, initial encounter; M79.3 Panniculitis, unspecified; D64.9 Anemia, unspecified; R53.81 Other malaise; S31.109A Unspecified open wound of abdominal wall, unspecified quadrant without penetration into peritoneal cavity, initial encounter; R40.2354 Coma scale, best motor response, localizes pain, 24 hours or more after hospital admission; R40.2134 Coma scale, eyes open, to sound, 24 hours or more after hospital admission; R40.2244 Coma scale, best verbal response, confused conversation, 24 hours or more after hospital admission